=== PATIENT | female | born 1955 | race Caucasian/White ===

== ENCOUNTER 2022-01-01 12:13 | Outpatient (CLI) | payer MEDICAID, SELFPAY ==
[2022-01-01 13:04] LABS: Absolute Lymphocyte Count 1.09 X10^3/uL (0.83-4.51); Absolute Neutrophil Count 4.5 X10^3/uL (2.0-7.7); Basophil# 0.03 X10^3/uL; Basophil% 0.5 % (0-1); Eosinophils% 1.7 % (0-5); Hematocrit 37.3 % (37-47); Hemoglobin 12.9 g/dL (12.0-15.0); Lymphocyte # 1.09 X10^3/ul (0.83-4.51); Mean Corp Hgb Conc 34.6 g/dL (32-36); Mean Corpuscular Volume 89.7 fL (81-99); Mean Platelet Vol. 11.6 fl (6.2-12.0); Monocyte# 0.29 X10^3/uL; Monocyte% 4.8 % (0-10); NRBC Flagged by Analyzer 0 % (0-5); Neutrophil # 4.52 X10^3/uL (2.7-7.7); Neutrophil % 74.7 % (47-70); Platelet Count 238 K/mm3 (150-450); RBC Distribution Width CV 12.6 % (11.6-14.6); RBC Distribution Width SD 41.2 fl (35.1-43.9); Red Blood Count 4.16 M/mm3 (4.2-5.4); White Blood Count 6.1 K/mm3 (4.4-11.0)
[2022-01-01 13:39] LABS: ALB/GLOB Ratio 0.9 RATIO (0.9-2.4); AST(SGOT) 21 U/L (15-37); Alanine Aminotransfer ALT/SGPT 30 U/L (13-56); Alkaline Phosphatase 119 U/L (45-117); Anion Gap 4 (5-15); BUN 23 mg/dL (7-18); BUN/Creat Ratio 23.4 RATIO (10-20); Calcium,Total 10.7 mg/dL (8.5-10.1); Chloride 103 mmol/L (98-107); Creatinine, Serum 0.98 mg/dL (0.55-1.02); EST Glomerular Filtration Rate 61 mL/min (>60); Est Glom Filt Rate - Afr Amer 73 mL/min (>60); Globulin 4.3 g/dL (2.2-4.2); Glucose 157 mg/dL (74-106); Potassium 3.7 mmol/L (3.5-5.1); Protein, Total 8.3 g/dL (6.4-8.2); Sodium Level 137 mmol/L (136-145); Thyroid Stim Hormone (TSH) 0.99 uIU/mL (0.358-3.74)
[2022-01-01 14:06] LABS: Hepatitis C Antibody Non-Reactive (Nonreactive); Vitamin D,25 Hydroxy 22.7 ng/mL
== END 2022-01-01 23:59 | disposition home or self-care (01) ==
PROVIDERS: PCP Family Medicine; Visit Provider Family Medicine Geriatric Medicine
DX: Z00.00 Encounter for general adult medical examination without abnormal findings (principal); R53.83 Other fatigue; E55.9 Vitamin D deficiency, unspecified
CPT/HCPCS: 36415; 80053; 82306; 84443; 85025; 86803

== ENCOUNTER 2022-01-12 14:14 | Outpatient (CLI) | payer MEDICAID, SELFPAY ==
--- NOTE | 2022-01-12 14:17 | BI_ITS ---
MAMMOGRAPHY - BILATERAL SCREENING REASON FOR EXAM: Female, 66 years old. Routine annual screening examination. PERTINENT HISTORY: Non-contributory. Remote left breast biopsy. TECHNIQUE: Digital bilateral breast jeanette (3D mammographic acquisition) in the CC and MLO projections. 2-D mediolateral oblique (MLO) and craniocaudad (CC) views of both breasts were obtained. CAD: Full Field Digital Mammography with Computer Added Detection was performed. COMPARISON: Comparison is made with prior outside examination dated 11/15/2019. FINDINGS: Breast Composition: The breasts are heterogeneously dense, which may obscure small masses. There are no dominant masses or suspicious calcifications. Stable scattered calcifications in the upper outer quadrant of the left breast. No other significant abnormalities are identified. There has been no significant change since the prior study. BI/SCRN MAMM (CAD)W/JEANETTE BILAT IMPRESSION: Stable bilateral screening mammogram. Yearly follow-up mammogram recommended. (A) ASSESSMENT CATEGORY: BIRADS Category 2: Benign. A letter regarding these results will be sent to the patient by the facility within 30 days. Approximately 10% of breast cancers are not detected by mammography. A normal mammogram should not delay biopsy of a clinically suspicious abnormality. [id number] Electronically Signed: Navin Quevedo MD at 10:58 EDT ,
--- NOTE | 2022-01-12 14:20 | BD_ITS ---
STUDY: DUAL ENERGY X-RAY ABSORPTIOMETRY / DXA REASON FOR EXAM: Female, 66 years old. Z780. Patient is postmenopausal. TECHNIQUE: Bone Mineral Density (BMD) measurements of lumbar spine and bilateral hips were obtained. COMPARISON: None. FINDINGS: Lumbar Spine (L1-L4): g/cm2 (1.193) / T-score (1.3) / Z-score (3.0) Findings are suggestive of normal bone density with a low fracture risk. Left Femur Total: g/cm2 (0.946) / T-score (0.0) / Z-score (1.2) Left Femoral Neck: g/cm2 (0.811) / T-score (-0.3) / Z-score (1.1) Right Femur Total: g/cm2 (0.940) / T-score (0.0) / Z-score (1.2) Right Femoral Neck: g/cm2 (0.778) / T-score (-0.6) / Z-score (0.8) BD/Dexa Bone Density Study IMPRESSION: The patient is considered normal as outlined below according to World Cesar Organization (WHO) criteria with a low fracture risk. Reference Information: The T-score is the number of standard deviations above or below the standard which is normal for young adults at their peak bone mineral density. The World Health Organization (WHO) interprets the T-scores as follows: Above -1 Normal bone density Between -1 and -2.5 Osteopenia Equal to / or below -2.5 Osteoporosis As a practical clinical guideline, osteopenia may be graded as follows: Mild -1 through -1.5 Moderate -1.6 through -2.0 Severe -2.1 through -2.4 The Z-score is the number of standard deviations above or below age-matched controls. A Z-score of less than -1.5 would be considered abnormal. References: 1. NIH Osteoporosis and Related Bone Diseases www osteo.org 2. International Society for Clinical Densitometry www iscd.org 3. National Osteoporosis Foundation www nof.org Electronically Signed: Navin Quevedo MD at 8:26 EDT ,
== END 2022-01-12 23:59 | disposition home or self-care (01) ==
LOC: OPBD 14:14
PROVIDERS: PCP Family Medicine Geriatric Medicine; Visit Provider Family Medicine Geriatric Medicine
DX: Z12.31 Encounter for screening mammogram for malignant neoplasm of breast (principal); Z78.0 Asymptomatic menopausal state
CPT/HCPCS: 77063; 77067; 77080

== ENCOUNTER 2022-01-15 12:37 | Outpatient (CLI) | payer MEDICAID, SELFPAY ==
--- NOTE | 2022-01-15 12:39 | CT_ITS ---
STUDY: CT CHEST WITHOUT CONTRAST- LOW DOSE SCREENING PROTOCOL REASON FOR EXAM: Female, 66 years old. Former smoker. Quit smoking less than 20 years ago. 20 pack per year history. No current symptoms of lung cancer or pulmonary infection. Shared decision-making with referring PCP documented in patient''s record. RADIATION DOSAGE (If Supplied By Facility): CTDIvol = ( 3.02 ) mGy, DLP = ( 105.71 ) mGycm TECHNIQUE: Low dose screening CT examination performed from the base of the neck to the upper abdomen. Sagittal and coronal reformatted images performed. Sagittal and coronal MIP images provided. The measurements provided are average, rounded measurements per ACR guidelines. COMPARISON: None. FINDINGS: Mild emphysema. No noncalcified nodule or mass. There is no demonstrated pleural abnormality. Normal heart and pericardium. There are calcifications of the coronary arteries. Normal mediastinum. Normal hilar regions. Normal unenhanced pulmonary arteries. Normal aorta arch and descending thoracic aorta. Normal osseous structures. There is no demonstrated abnormality of the visualized upper abdomen. CT/Low Dose CT Lung Screening IMPRESSION: 1. No significant indeterminate incidental findings requiring additional imaging. 2. Incidental findings include mild emphysema. ASSESSMENT CATEGORY: LungRADS 1 - Negative. Continue annual screening with LDCT in 12 months, per established ACR guidelines. Electronically Signed: Jamey Sanabria MD at 9:12 EDT ,
== END 2022-01-15 23:59 | disposition home or self-care (01) ==
LOC: CT 12:38
PROVIDERS: PCP Family Medicine Geriatric Medicine; Referring Provider Family Medicine Geriatric Medicine; Visit Provider Family Medicine Geriatric Medicine
DX: Z87.891 Personal history of nicotine dependence (principal)
CPT/HCPCS: 71271

== ENCOUNTER → 2022-02-23 | Outpatient (CLI) | payer MEDICAID, SELFPAY | END | disposition home or self-care (01) | LOC: POLAB3 14:29 → LABSPEC 14:30 | PROVIDERS: PCP Family Medicine Geriatric Medicine; Visit Provider Family Medicine Geriatric Medicine | DX: N39.0 Urinary tract infection, site not specified (principal) | CPT/HCPCS: 87086; 87088; 87186 ==

== ENCOUNTER → 2022-03-15 | Outpatient (CLI) | payer MEDICAID, SELFPAY ==
--- NOTE | 2022-03-15 13:01 | RAD_ITS ---
STUDY: X-RAY CHEST REASON FOR EXAM: Female, 66 years old. COUGH TECHNIQUE: 2 views. COMPARISON: None. FINDINGS: Cardiomediastinal silhouette is unremarkable. Costophrenic angles are sharp. Lungs are hyperinflated but clear. The trachea is midline. There is no pneumothorax. The bones are grossly intact. RAD/Chest PA and Lateral IMPRESSION: COPD. No acute cardiopulmonary process. Electronically Signed: Cj Heard MD at 3:05 EDT ,
== END | disposition home or self-care (01) ==
LOC: RAD 13:00
PROVIDERS: PCP Family Medicine Geriatric Medicine; Referring Provider Family Medicine Geriatric Medicine; Visit Provider Family Medicine Geriatric Medicine
DX: R05.9 Cough, unspecified (principal)
CPT/HCPCS: 71046

== ENCOUNTER → 2022-03-16 | Outpatient (CLI) | payer MEDICAID, SELFPAY | END | disposition home or self-care (01) | LOC: PSN 11:38 | PROVIDERS: PCP Family Medicine Geriatric Medicine; Visit Provider Family Medicine Geriatric Medicine | DX: R68.83 Chills (without fever) (principal); Z20.822 Contact with and (suspected) exposure to COVID-19 | CPT/HCPCS: 87635; 87804; 87807; C9803; U0003; U0005 ==

== ENCOUNTER → 2022-04-06 | Outpatient (CLI) | payer MEDICAID, SELFPAY ==
[2022-04-06 17:03] LABS: Absolute Lymphocyte Count 1.31 X10^3/uL (0.83-4.51); Absolute Neutrophil Count 5.5 X10^3/uL (2.0-7.7); Basophil# 0.02 X10^3/uL; Basophil% 0.3 % (0-1); Eosinophil# 0.06 X10^3/uL; Eosinophils% 0.8 % (0-5); Hemoglobin 12.8 g/dL (12.0-15.0); Lymphocyte # 1.31 X10^3/ul (0.83-4.51); Lymphocyte % 18.1 % (19-41); Mean Corp Hgb Conc 33.7 g/dL (32-36); Mean Corpuscular Hgb 30.6 pg (27.0-32.0); Mean Corpuscular Volume 90.9 fL (81-99); Mean Platelet Vol. 12.3 fl (6.2-12.0); Monocyte# 0.35 X10^3/uL; Monocyte% 4.8 % (0-10); NRBC Flagged by Analyzer 0.3 % (0-5); Neutrophil # 5.46 X10^3/uL (2.7-7.7); Neutrophil % 75.7 % (47-70); Platelet Count 186 K/mm3 (150-450); RBC Distribution Width CV 13.3 % (11.6-14.6); RBC Distribution Width SD 43.8 fl (35.1-43.9); Red Blood Count 4.18 M/mm3 (4.2-5.4); White Blood Count 7.2 K/mm3 (4.4-11.0)
[2022-04-06 17:28] LABS: ALB/GLOB Ratio 1.2 RATIO (0.9-2.4); AST(SGOT) 22 U/L (15-37); Alanine Aminotransfer ALT/SGPT 40 U/L (13-56); Alkaline Phosphatase 92 U/L (45-117); Anion Gap 8 (5-15); BUN 19 mg/dL (7-18); BUN/Creat Ratio 18.4 RATIO (10-20); Calcium,Total 11.1 mg/dL (8.5-10.1); Chloride 104 mmol/L (98-107); Creatinine, Serum 1.03 mg/dL (0.55-1.02); EST Glomerular Filtration Rate 57 mL/min (>60); Est Glom Filt Rate - Afr Amer 69 mL/min (>60); Globulin 3.4 g/dL (2.2-4.2); Glucose 99 mg/dL (74-106); Potassium 3.4 mmol/L (3.5-5.1); Protein, Total 7.4 g/dL (6.4-8.2); Sodium Level 140 mmol/L (136-145); Thyroid Stim Hormone (TSH) 0.95 uIU/mL (0.358-3.74)
== END | disposition home or self-care (01) ==
LOC: POLAB3 11:59
PROVIDERS: PCP Family Medicine Geriatric Medicine; Visit Provider Family Medicine Geriatric Medicine
DX: I10 Essential (primary) hypertension (principal); E11.65 Type 2 diabetes mellitus with hyperglycemia
CPT/HCPCS: 36415; 80053; 84443; 85025

== ENCOUNTER → 2022-04-13 | Outpatient (CLI) | payer MEDICAID, SELFPAY ==
[2022-04-13 16:29] LABS: Anion Gap 8 (5-15); BUN 16 mg/dL (7-18); BUN/Creat Ratio 15.8 RATIO (10-20); Calcium,Total 10.7 mg/dL (8.5-10.1); Chloride 104 mmol/L (98-107); Creatinine, Serum 1.01 mg/dL (0.55-1.02); EST Glomerular Filtration Rate 59 mL/min (>60); Est Glom Filt Rate - Afr Amer 71 mL/min (>60); Glucose 176 mg/dL (74-106); Potassium 3.5 mmol/L (3.5-5.1); Sodium Level 138 mmol/L (136-145)
== END | disposition home or self-care (01) ==
LOC: POLAB3 14:01
PROVIDERS: PCP Family Medicine Geriatric Medicine; Visit Provider Family Medicine Geriatric Medicine
DX: E87.6 Hypokalemia (principal)
CPT/HCPCS: 36415; 80048

== ENCOUNTER → 2022-07-05 | Outpatient (CLI) | payer MEDICAID, SELFPAY ==
[2022-07-05 16:27] LABS: Absolute Neutrophil Count 4.4 X10^3/uL (2.0-7.7); Basophil# 0.02 X10^3/uL; Basophil% 0.3 % (0-1); Eosinophil# 0.04 X10^3/uL; Eosinophils% 0.7 % (0-5); Hematocrit 38.3 % (37-47); Lymphocyte % 18.5 % (19-41); Mean Corp Hgb Conc 33.9 g/dL (32-36); Mean Corpuscular Hgb 30.9 pg (27.0-32.0); Mean Platelet Vol. 12.1 fl (6.2-12.0); Monocyte# 0.35 X10^3/uL; Monocyte% 5.9 % (0-10); NRBC Flagged by Analyzer 0 % (0-5); Neutrophil # 4.43 X10^3/uL (2.7-7.7); Neutrophil % 74.4 % (47-70); Platelet Count 224 K/mm3 (150-450); RBC Distribution Width CV 13.2 % (11.6-14.6); RBC Distribution Width SD 43.6 fl (35.1-43.9); Red Blood Count 4.21 M/mm3 (4.2-5.4)
[2022-07-05 17:23] LABS: AST(SGOT) 19 U/L (15-37); Alanine Aminotransfer ALT/SGPT 30 U/L (13-56); Albumin, Serum 3.8 g/dL (3.2-5.0); Alkaline Phosphatase 103 U/L (45-117); Anion Gap 10 (5-15); BUN 18 mg/dL (7-18); BUN/Creat Ratio 19.2 RATIO (10-20); Calcium,Total 10.7 mg/dL (8.5-10.1); Chloride 103 mmol/L (98-107); Creatinine, Serum 0.94 mg/dL (0.55-1.02); EST Glomerular Filtration Rate 64 mL/min (>60); Est Glom Filt Rate - Afr Amer 77 mL/min (>60); Globulin 3.8 g/dL (2.2-4.2); Glucose 93 mg/dL (74-106); Potassium 3.5 mmol/L (3.5-5.1); Protein, Total 7.6 g/dL (6.4-8.2); Sodium Level 142 mmol/L (136-145); Thyroid Stim Hormone (TSH) 1.28 uIU/mL (0.358-3.74)
== END | disposition home or self-care (01) ==
LOC: POLAB3 12:53
PROVIDERS: PCP Family Medicine Geriatric Medicine; Visit Provider Family Medicine Geriatric Medicine
DX: I10 Essential (primary) hypertension (principal); E11.65 Type 2 diabetes mellitus with hyperglycemia
CPT/HCPCS: 36415; 80053; 84443; 85025

== ENCOUNTER → 2022-10-04 | Outpatient (CLI) | payer MEDICARE, MEDICAID, SELFPAY ==
[2022-10-04 17:22] LABS: Absolute Lymphocyte Count 1.32 X10^3/uL (0.83-4.51); Absolute Neutrophil Count 3.6 X10^3/uL (2.0-7.7); Basophil# 0.02 X10^3/uL; Basophil% 0.4 % (0-1); Eosinophil# 0.04 X10^3/uL; Eosinophils% 0.7 % (0-5); Hemoglobin 12.8 g/dL (12.0-15.0); Lymphocyte # 1.32 X10^3/ul (0.83-4.51); Lymphocyte % 24.2 % (19-41); Mean Corp Hgb Conc 34.6 g/dL (32-36); Mean Corpuscular Hgb 30.6 pg (27.0-32.0); Mean Corpuscular Volume 88.5 fL (81-99); Mean Platelet Vol. 11.8 fl (6.2-12.0); Monocyte# 0.43 X10^3/uL; Monocyte% 7.9 % (0-10); NRBC Flagged by Analyzer 0 % (0-5); Neutrophil # 3.63 X10^3/uL (2.7-7.7); Neutrophil % 66.6 % (47-70); Platelet Count 217 K/mm3 (150-450); RBC Distribution Width CV 12.4 % (11.6-14.6); RBC Distribution Width SD 39.8 fl (35.1-43.9); Red Blood Count 4.18 M/mm3 (4.2-5.4); White Blood Count 5.5 K/mm3 (4.4-11.0)
[2022-10-04 17:32] LABS: Vitamin D,25 Hydroxy 36.2 ng/mL
[2022-10-04 17:39] LABS: ALB/GLOB Ratio 1.1 RATIO (0.9-2.4); AST(SGOT) 15 U/L (15-37); Alanine Aminotransfer ALT/SGPT 23 U/L (13-56); Albumin, Serum 3.9 g/dL (3.2-5.0); Alkaline Phosphatase 110 U/L (45-117); Anion Gap 9 (5-15); BUN 20 mg/dL (7-18); BUN/Creat Ratio 19.2 RATIO (10-20); Calcium,Total 11.1 mg/dL (8.5-10.1); Chloride 103 mmol/L (98-107); Cholesterol 125 mg/dL (200); Creatinine, Serum 1.04 mg/dL (0.55-1.02); EST Glomerular Filtration Rate 57 mL/min (>60); Est Glom Filt Rate - Afr Amer 68 mL/min (>60); Globulin 3.6 g/dL (2.2-4.2); Glucose 119 mg/dL (74-106); High Density Lipoprotein 43 mg/dL; Potassium 3.6 mmol/L (3.5-5.1); Protein, Total 7.5 g/dL (6.4-8.2); Sodium Level 140 mmol/L (136-145); Thyroid Stim Hormone (TSH) 0.76 uIU/mL (0.358-3.74); Triglycerides 98 mg/dL; Very Low Density Lipoprotein 20 mg/dL (5-40)
== END | disposition home or self-care (01) ==
PROVIDERS: PCP Family Medicine Geriatric Medicine; Visit Provider Family Medicine Geriatric Medicine
DX: E55.9 Vitamin D deficiency, unspecified (principal); E11.65 Type 2 diabetes mellitus with hyperglycemia; I10 Essential (primary) hypertension
CPT/HCPCS: 36415; 80053; 80061; 82306; 84443; 85025

== ENCOUNTER → 2023-01-03 | Outpatient (CLI) | payer MEDICARE, MEDICAID, SELFPAY ==
[2023-01-03 17:34] LABS: Absolute Lymphocyte Count 1.17 X10^3/uL (0.83-4.51); Absolute Neutrophil Count 4.7 X10^3/uL (2.0-7.7); Basophil# 0.02 X10^3/uL; Basophil% 0.3 % (0-1); Eosinophil# 0.04 X10^3/uL; Eosinophils% 0.6 % (0-5); Hematocrit 41.9 % (37-47); Hemoglobin 13.6 g/dL (12.0-15.0); Lymphocyte # 1.17 X10^3/ul (0.83-4.51); Lymphocyte % 18.7 % (19-41); Mean Corp Hgb Conc 32.5 g/dL (32-36); Mean Corpuscular Volume 92.3 fL (81-99); Mean Platelet Vol. 11.7 fl (6.2-12.0); Monocyte# 0.35 X10^3/uL; Monocyte% 5.6 % (0-10); NRBC Flagged by Analyzer 0 % (0-5); Neutrophil # 4.65 X10^3/uL (2.7-7.7); Neutrophil % 74.5 % (47-70); Platelet Count 204 K/mm3 (150-450); RBC Distribution Width CV 12.5 % (11.6-14.6); RBC Distribution Width SD 42.5 fl (35.1-43.9); Red Blood Count 4.54 M/mm3 (4.2-5.4); White Blood Count 6.3 K/mm3 (4.4-11.0)
[2023-01-03 17:48] LABS: Vitamin D,25 Hydroxy 31.4 ng/mL
[2023-01-03 18:00] LABS: ALB/GLOB Ratio 1.1 RATIO (0.9-2.4); AST(SGOT) 20 U/L (15-37); Alanine Aminotransfer ALT/SGPT 34 U/L (13-56); Albumin, Serum 4.1 g/dL (3.2-5.0); Alkaline Phosphatase 92 U/L (45-117); Anion Gap 7 (5-15); BUN 19 mg/dL (7-18); BUN/Creat Ratio 21.8 RATIO (10-20); Chloride 104 mmol/L (98-107); Cholesterol 143 mg/dL (200); Creatinine, Serum 0.87 mg/dL (0.55-1.02); EST Glomerular Filtration Rate 69 mL/min (>60); Est Glom Filt Rate - Afr Amer 84 mL/min (>60); Globulin 3.7 g/dL (2.2-4.2); Glucose 96 mg/dL (74-106); High Density Lipoprotein 48 mg/dL; Potassium 3.6 mmol/L (3.5-5.1); Protein, Total 7.8 g/dL (6.4-8.2); Sodium Level 141 mmol/L (136-145); Thyroid Stim Hormone (TSH) 1.14 uIU/mL (0.358-3.74); Triglycerides 155 mg/dL; Very Low Density Lipoprotein 31 mg/dL (5-40)
== END | disposition home or self-care (01) ==
LOC: POLAB3 13:18
PROVIDERS: PCP Family Medicine Geriatric Medicine; Visit Provider Family Medicine Geriatric Medicine
DX: I10 Essential (primary) hypertension (principal); E11.65 Type 2 diabetes mellitus with hyperglycemia; E55.9 Vitamin D deficiency, unspecified
CPT/HCPCS: 36415; 80053; 80061; 82306; 84443; 85025

== ENCOUNTER → 2023-01-21 | Outpatient (CLI) | payer MEDICARE, MEDICAID, SELFPAY ==
--- NOTE | 2023-01-21 14:07 | SP.MBSS_ITS ---
Modified Barium Swallow - Patient Information Study Date: 01/21/23 Study Time: 12:55 Direct Billable Minutes: 82 Total Minutes procedure & reportin Diagnosis: Dysphagia, unspecified (R13.10) Referring Physician: Daniel Barahona Chi Reason for Referral: Objectively assess swallow function, assess risk for aspiration, and determine recommendations for least restrictive diet textures and compensatory strategies to improve safety of swallow. Medical History: The patient is a 67-year-old female with PMH including GERD, which she has managed for years with medication. Patient reports increased difficulty swallowing in the past year, which has worsened in the past 3 months. Her swallowing difficulty is characterized by coughing on saliva, food, and drink, which occurs almost daily. She denied regurgitation of food and drink; however, she did report an episode ~2 months prior of concern for choking on salad. She used a liquid wash to attempt clearing the salad, but the drink came out her nose. She stated she did not need the Heimlich and could breathe/speak during the episode; however, she felt that the food was caught in the left side of her throat. She reports concerns for throat soreness/pain on L side of her throat fairly frequently. Current Diet Ordered: Regular textures / Thin liquids Dentition: Partials - Upper dentition, Missing Teeth - Lower molars Mental Status: WNL Respiratory Status: Oxygenating on Room Air - Penetration-Aspiration Scale Penetration-Aspiration Scale: OBJECTIVE ASSESSMENT OF SWALLOW FUNCTION (QUANTITATIVE ? PER TRIAL): PENETRATION / ASPIRATION SCALE (HADDAD): 1 = does not enter airway 2 = enters airway/above vocal folds/ejected 3 = enters airway/above vocal folds/not ejected 4 = enters airway/contacts vocal folds/ejected 5 = enters airway/contacts vocal folds/not ejected 6 = enters airway/below vocal folds/ejected 7 = enters airway/below vocal folds/not ejected despite effort 8 = enters airway/below vocal folds/no effort VIDEOFLOROSCOPIC SCALE SCORE (HADDAD): Grade I = aspiration of material that has penetrated into the laryngeal vestibule, intact cough reflex Grade II = aspiration < 10 % of the bolus, intact cough reflex Grade III = aspiration of < 10 % of the bolus, reduced cough reflex or aspiration of > 10 % of the bolus, intact cough reflex Grade IV = aspiration of > 10 % of the bolus, reduced cough reflex - Penetration-Aspiration Scale Score Thin Liquid via teaspoon Result: 1= does not enter airway Thin Liquid via teaspoon Trial 2 Result: 1= does not enter airway Thin Liquid via sequential sips from cup Result: 1= does not enter airway [place] Thick Liquid via small single sip from cup Result: 1= does not enter airway Pudding via teaspoon with esophageal screen Result: 1= does not enter airway Thin Liquid via sequential straw sips with esophageal screen Result: 1= does not enter airway 1/2 Cookie Result: 1= does not enter airway - Oral Phase Labial Seal: No Labial Escape Tongue Control During Bolus Hold: Posterior escape of greater than half of bolus Bolus Preparation/Mastication: Timely and efficient chewing and mashing Bolus Transport/Lingual Motion: Delayed initiation of tongue motion Oral Residue: Residue collection on oral structures - piecemeal deglutition of cookie - Pharyngeal Phase Initiation of Pharyngeal Swallow: Bolus head in pyriforms Soft Palate Elevation: Trace column of contrast/air between soft palate and pharyngeal wall Laryngeal Elevation: Comp. Superior move thyroid cart w/comp. apprx arytenoid cart-epig pet - trace contrast in UES Anterior Hyoid Excursion: Complete anterior movement Epiglottic Movement: Complete inversion Laryngeal Vestibule Closure at Height of Swallow: Complete; no air/contrast in laryngeal vestibule Pharyngeal Stripping Wave: Present - complete Pharyngoesophageal Segment Opening: Parital distension and partial duration; parital obstruction of flow Tongue Base Retraction: Trace column of contrast between tongue base & post. pharyngeal wall Pharyngeal Residue: Trace residue within or on pharyngeal structures - Esophageal Phase Esophageal Clearance: Esophageal retention w/ retrograde flow below pharyngoesophageal seg. - Diagnosis/Impression Diagnosis: Oropharyngeal swallow function grossly WNL, Esophageal dysphagia (R13.14) Impression: The oral and pharyngeal phases were overall WNL. The patient presented piecemeal deglutition of cookie; however, she adequately cleared residues from oral cavity with independent initiation of multiple swallows. Trace pharyngeal residues despite patient reporting sensation of retention on L side of her throat. Good airway closure during the swallow with no laryngeal penetration or aspiration observed. The patient does present with cervical osteophytes at the level of C-2 to C-4, which may be contributing to patient's irritation/sensation of retention in orophayrnx. SEE image at the end of the study in PACS. They did not appear to greatly impact bolus clearance at this time. As mentioned above, only trace pharyngeal residues were observed. The esophageal phase is primarily marked by... -Trace residues in the cricopharyngeus and upper esophagus. -Residue collection of 1/2 pudding bolus in the mid esophagus with retrograde flow remaining below the upper esophageal sphincter. -Pudding residue somewhat cleared with liquid wash; however, some retention of liquids remained in lower esophagus with retrograde flow remaining well below the upper esophageal sphincter. - Recommendations Diet: Regular Textures, Thin Liquids Comment: Consider 4-5 smaller meals per day vs. 3 larger meals. Stop meal and resume at a later time if experiencing reflux symptoms. Compensatory Strategies: Small Bites, Small Sips, Slow Rate, Alternate bite s/solids and sips/liquids, Sitting upright, Remain sitting upright for 30 minutes after PO intake Recommend Repeat Modified Barium Swallow: No Need for Skilled Speech Therapy Services: No Recommended Referrals: GI Consult - Recommend GI consult for slowed esophageal emptying of both liquid and pudding trials. Patient is safe for barium esophagram if recommended by home restoration service supervisor. Education Completed: 1. Described result of evaluation. - Status Active ST Patient: Active - Contact Information [facility] Speech Therapy:: Gely Aponte M.A. [facility]-M[facility] INTERN Speech-Language Pathologist [facility] [address] [place] [address] [email or web address] [phone] 01/21/23 14:09
== END | disposition home or self-care (01) ==
PROVIDERS: PCP Family Medicine Geriatric Medicine; Visit Provider Family Medicine Geriatric Medicine
DX: R13.10 Dysphagia, unspecified (principal)
CPT/HCPCS: 74230; 92611

== ENCOUNTER → 2023-05-02 | Outpatient (CLI) | payer MEDICARE, MEDICAID, SELFPAY ==
--- NOTE | 2023-05-02 14:18 | BI_ITS ---
MAMMOGRAPHY - BILATERAL SCREENING REASON FOR EXAM: Female, 67 years old. Routine annual screening examination. PERTINENT HISTORY: Non-contributory. Remote left breast biopsy. TECHNIQUE: Digital bilateral breast jeanette (3D mammographic acquisition) in the CC and MLO projections. 2-D mediolateral oblique (MLO) and craniocaudad (CC) views of both breasts were obtained. CAD: Full Field Digital Mammography with Computer Added Detection was performed. COMPARISON: Comparison is made with prior examination dated January 12, 2022. FINDINGS: Breast Composition: The breasts are heterogeneously dense, which may obscure small masses. There are no dominant masses or suspicious calcifications. Stable scattered bilateral calcifications. No other significant abnormalities are identified. There has been no significant change since the prior study. BI/SCRN MAMM (CAD)W/JEANETTE BILAT IMPRESSION: Stable bilateral screening mammogram. Yearly follow-up mammogram recommended. (A) ASSESSMENT CATEGORY: BIRADS Category 2: Benign. A letter regarding these results will be sent to the patient by the facility within 30 days. Approximately 10% of breast cancers are not detected by mammography. A normal mammogram should not delay biopsy of a clinically suspicious abnormality. [id number] Electronically Signed: Navin Quevedo MD at 8:12 EDT ,
== END | disposition home or self-care (01) ==
LOC: OPBI 14:18
PROVIDERS: PCP Family Medicine Geriatric Medicine; Referring Provider Family Medicine Geriatric Medicine; Visit Provider Family Medicine Geriatric Medicine
DX: Z12.31 Encounter for screening mammogram for malignant neoplasm of breast (principal)
CPT/HCPCS: 77063; 77067

== ENCOUNTER → 2023-07-05 | Outpatient (CLI) | payer MEDICARE, MEDICAID, SELFPAY ==
[2023-07-05 12:16] LABS: Absolute Lymphocyte Count 1.16 X10^3/uL (0.83-4.51); Absolute Neutrophil Count 3.7 X10^3/uL (2.0-7.7); Basophil# 0.03 X10^3/uL; Basophil% 0.6 % (0-1); Eosinophil# 0.04 X10^3/uL; Eosinophils% 0.8 % (0-5); Hematocrit 40.9 % (37-47); Hemoglobin 13.5 g/dL (12.0-15.0); Lymphocyte # 1.16 X10^3/ul (0.83-4.51); Lymphocyte % 22.2 % (19-41); Mean Corpuscular Hgb 30.4 pg (27.0-32.0); Mean Corpuscular Volume 92.1 fL (81-99); Mean Platelet Vol. 11.5 fl (6.2-12.0); Monocyte# 0.26 X10^3/uL; NRBC Flagged by Analyzer 0 % (0-5); Neutrophil # 3.72 X10^3/uL (2.7-7.7); Platelet Count 198 K/mm3 (150-450); RBC Distribution Width CV 12.6 % (11.6-14.6); RBC Distribution Width SD 42.8 fl (35.1-43.9); Red Blood Count 4.44 M/mm3 (4.2-5.4); White Blood Count 5.2 K/mm3 (4.4-11.0)
[2023-07-05 12:31] LABS: Vitamin D,25 Hydroxy 39.8 ng/mL
[2023-07-05 12:43] LABS: AST(SGOT) 21 U/L (15-37); Alanine Aminotransfer ALT/SGPT 44 U/L (13-56); Albumin, Serum 3.9 g/dL (3.2-5.0); Alkaline Phosphatase 99 U/L (45-117); Anion Gap 5 (5-15); BUN 20 mg/dL (7-18); BUN/Creat Ratio 21.3 RATIO (10-20); Calcium,Total 10.7 mg/dL (8.5-10.1); Chloride 105 mmol/L (98-107); Cholesterol 130 mg/dL (200); Creatinine, Serum 0.94 mg/dL (0.55-1.02); EST Glomerular Filtration Rate 63 mL/min (>60); Est Glom Filt Rate - Afr Amer 77 mL/min (>60); Globulin 3.8 g/dL (2.2-4.2); Glucose 125 mg/dL (74-106); High Density Lipoprotein 43 mg/dL; Potassium 3.8 mmol/L (3.5-5.1); Protein, Total 7.7 g/dL (6.4-8.2); Sodium Level 139 mmol/L (136-145); Thyroid Stim Hormone (TSH) 1.04 uIU/mL (0.358-3.74); Triglycerides 107 mg/dL; Very Low Density Lipoprotein 21 mg/dL (5-40)
== END | disposition home or self-care (01) ==
LOC: POLAB3 11:18
PROVIDERS: PCP Family Medicine Geriatric Medicine; Visit Provider Family Medicine Geriatric Medicine
DX: E11.65 Type 2 diabetes mellitus with hyperglycemia (principal); E55.9 Vitamin D deficiency, unspecified; I10 Essential (primary) hypertension
CPT/HCPCS: 36415; 80053; 80061; 82306; 83036; 84443; 85025

== ENCOUNTER → 2023-08-15 | Outpatient (CLI) | payer MEDICARE, MEDICAID, SELFPAY ==
--- NOTE | 2023-08-15 12:28 | US_ITS ---
EXAM: US Abdomen Limited (quadrant) HISTORY: BENIGN LIPOMATOUS NEOPLASM, UNSPECIFIED Technique: Sonographic evaluation of a palpable abdominal lump COMPARISON: None FINDINGS: Sonographic evaluation of the area of concern shows a subcutaneous well-defined likely lipoma measuring 6.9 x 7.6 x 2.0 cm. No suspicious vascularity or fluid noted. No evidence of hernia US/Abdomen Limited IMPRESSION: Subcutaneous lipoma corresponding to the palpable abnormality at the area of concern Electronically Signed: Jay Martinez MD at 15:16 EDT ,
== END | disposition home or self-care (01) ==
LOC: US 12:26
PROVIDERS: PCP Family Medicine Geriatric Medicine; Referring Provider Family Medicine Geriatric Medicine; Visit Provider Family Medicine Geriatric Medicine
DX: D17.9 Benign lipomatous neoplasm, unspecified (principal)
CPT/HCPCS: 76705

== ENCOUNTER → 2024-01-09 | Outpatient (CLI) | payer MEDICARE, MEDICAID, SELFPAY ==
[2024-01-09 12:08] LABS: Absolute Lymphocyte Count 1.13 X10^3/uL (0.83-4.51); Absolute Neutrophil Count 4.4 X10^3/uL (2.0-7.7); Basophil# 0.03 X10^3/uL; Basophil% 0.5 % (0-1); Eosinophil# 0.03 X10^3/uL; Eosinophils% 0.5 % (0-5); Hemoglobin 12.5 g/dL (12.0-15.0); Lymphocyte # 1.13 X10^3/ul (0.83-4.51); Lymphocyte % 19.4 % (19-41); Mean Corp Hgb Conc 33.8 g/dL (32-36); Mean Corpuscular Hgb 30.8 pg (27.0-32.0); Mean Corpuscular Volume 91.1 fL (81-99); Mean Platelet Vol. 12.2 fl (6.2-12.0); Monocyte# 0.21 X10^3/uL; Monocyte% 3.6 % (0-10); NRBC Flagged by Analyzer 0 % (0-5); Neutrophil # 4.42 X10^3/uL (2.7-7.7); Neutrophil % 75.8 % (47-70); Platelet Count 169 K/mm3 (150-450); RBC Distribution Width CV 12.6 % (11.6-14.6); RBC Distribution Width SD 41.9 fl (35.1-43.9); Red Blood Count 4.06 M/mm3 (4.2-5.4); White Blood Count 5.8 K/mm3 (4.4-11.0)
[2024-01-09 12:11] LABS: Vitamin D,25 Hydroxy 33.1 ng/mL
[2024-01-09 12:22] LABS: ALB/GLOB Ratio 1.1 RATIO (0.9-2.4); AST(SGOT) 28 U/L (15-37); Alanine Aminotransfer ALT/SGPT 41 U/L (13-56); Albumin, Serum 3.7 g/dL (3.2-5.0); Alkaline Phosphatase 100 U/L (45-117); Anion Gap 4 (5-15); BUN 17 mg/dL (7-18); BUN/Creat Ratio 16.5 RATIO (10-20); Calcium,Total 10.2 mg/dL (8.5-10.1); Chloride 105 mmol/L (98-107); Cholesterol 114 mg/dL (200); Creatinine, Serum 1.03 mg/dL (0.55-1.02); EST Glomerular Filtration Rate 57 mL/min (>60); Est Glom Filt Rate - Afr Amer 69 mL/min (>60); Globulin 3.4 g/dL (2.2-4.2); Glucose 172 mg/dL (74-106); High Density Lipoprotein 50 mg/dL; Potassium 3.6 mmol/L (3.5-5.1); Protein, Total 7.1 g/dL (6.4-8.2); Sodium Level 140 mmol/L (136-145); Thyroid Stim Hormone (TSH) 0.74 uIU/mL (0.358-3.74); Triglycerides 61 mg/dL; Very Low Density Lipoprotein 12 mg/dL (5-40)
[2024-01-09 12:28] LABS: Microalbumin,Random Urine 29.3 mg/L (NO RANGE EST.)
[2024-01-09 13:49] LABS: Hemoglobin A1c 6.1 % (3.8-5.6)
[2024-01-09 15:12] LABS: PTHIN 70.8 pg/mL (18.4-80.1)
== END | disposition home or self-care (01) ==
PROVIDERS: PCP Family Medicine Geriatric Medicine; Visit Provider Family Medicine Geriatric Medicine
DX: E11.65 Type 2 diabetes mellitus with hyperglycemia (principal); I10 Essential (primary) hypertension; E55.9 Vitamin D deficiency, unspecified; E78.5 Hyperlipidemia, unspecified
CPT/HCPCS: 36415; 80053; 80061; 82043; 82306; 83036; 83970; 84443; 85025

== ENCOUNTER → 2024-02-17 | Outpatient (CLI) | payer MEDICARE, MEDICAID, SELFPAY ==
[2024-02-17 11:37] LABS: Absolute Lymphocyte Count 0.36 X10^3/uL (0.83-4.51); Absolute Neutrophil Count 10.1 X10^3/uL (2.0-7.7); Basophil# 0.02 X10^3/uL; Basophil% 0.2 % (0-1); Hematocrit 39.4 % (37-47); Hemoglobin 13.4 g/dL (12.0-15.0); Lymphocyte # 0.36 X10^3/ul (0.83-4.51); Lymphocyte % 3.3 % (19-41); Mean Corpuscular Volume 88.1 fL (81-99); Mean Platelet Vol. 11.1 fl (6.2-12.0); Monocyte# 0.41 X10^3/uL; Monocyte% 3.7 % (0-10); NRBC Flagged by Analyzer 0 % (0-5); Neutrophil # 10.11 X10^3/uL (2.7-7.7); Neutrophil % 92.4 % (47-70); POSITIVE DIFFERENTIAL YES; Platelet Count 170 K/mm3 (150-450); RBC Distribution Width CV 12.1 % (11.6-14.6); RBC Distribution Width SD 39.6 fl (35.1-43.9); Red Blood Count 4.47 M/mm3 (4.2-5.4); White Blood Count 10.9 K/mm3 (4.4-11.0)
[2024-02-17 12:39] LABS: Anion Gap 7 (5-15); BUN 17 mg/dL (7-18); BUN/Creat Ratio 19.8 RATIO (10-20); Calcium,Total 10.8 mg/dL (8.5-10.1); Chloride 100 mmol/L (98-107); Creatinine, Serum 0.86 mg/dL (0.55-1.02); EST Glomerular Filtration Rate 70 mL/min (>60); Est Glom Filt Rate - Afr Amer 85 mL/min (>60); Glucose 131 mg/dL (74-106); Potassium 3.2 mmol/L (3.5-5.1); Sodium Level 135 mmol/L (136-145)
== END | disposition home or self-care (01) ==
LOC: POLAB3 11:13
PROVIDERS: PCP Family Medicine Geriatric Medicine; Visit Provider Family Medicine Geriatric Medicine
DX: I10 Essential (primary) hypertension (principal)
CPT/HCPCS: 36415; 80048; 85025

== ENCOUNTER → 2024-02-21 | Outpatient (CLI) | payer MEDICARE, MEDICAID, SELFPAY | END | disposition home or self-care (01) | LOC: PSN 09:26 | PROVIDERS: PCP Family Medicine Geriatric Medicine; Referring Provider Family Medicine Geriatric Medicine; Visit Provider Family Medicine Geriatric Medicine | DX: R68.83 Chills (without fever) (principal) | CPT/HCPCS: 87631 ==

== ENCOUNTER → 2024-06-21 | Outpatient (CLI) | payer MEDICARE, MEDICAID, SELFPAY | END | disposition home or self-care (01) | LOC: POLAB3 11:39 | PROVIDERS: PCP Family Medicine Geriatric Medicine; Visit Provider Family Medicine Geriatric Medicine | DX: R68.83 Chills (without fever) (principal) | CPT/HCPCS: 87631 ==

== ENCOUNTER → 2024-07-12 | Outpatient (CLI) | payer MEDICARE, MEDICAID, SELFPAY ==
[2024-07-12 11:05] LABS: Absolute Lymphocyte Count 1.19 X10^3/uL (0.83-4.51); Absolute Neutrophil Count 3.9 X10^3/uL (2.0-7.7); Basophil# 0.01 X10^3/uL; Basophil% 0.2 % (0-1); Eosinophil# 0.05 X10^3/uL; Eosinophils% 0.9 % (0-5); Hematocrit 39.2 % (37-47); Hemoglobin 13.1 g/dL (12.0-15.0); Lymphocyte # 1.19 X10^3/ul (0.83-4.51); Mean Corp Hgb Conc 33.4 g/dL (32-36); Mean Corpuscular Hgb 30.1 pg (27.0-32.0); Mean Corpuscular Volume 90.1 fL (81-99); Mean Platelet Vol. 11.5 fl (6.2-12.0); Monocyte# 0.29 X10^3/uL; Monocyte% 5.4 % (0-10); NRBC Flagged by Analyzer 0 % (0-5); Neutrophil # 3.86 X10^3/uL (2.7-7.7); Neutrophil % 71.1 % (47-70); Platelet Count 162 K/mm3 (150-450); RBC Distribution Width CV 12.7 % (11.6-14.6); RBC Distribution Width SD 41.5 fl (35.1-43.9); Red Blood Count 4.35 M/mm3 (4.2-5.4); White Blood Count 5.4 K/mm3 (4.4-11.0)
[2024-07-12 11:29] LABS: Hemoglobin A1c 5.6 % (3.8-5.6)
[2024-07-12 11:37] LABS: Vitamin D,25 Hydroxy 36.6 ng/mL
[2024-07-12 11:48] LABS: ALB/GLOB Ratio 1.1 RATIO (0.9-2.4); AST(SGOT) 36 U/L (15-37); Alanine Aminotransfer ALT/SGPT 76 U/L (13-56); Albumin, Serum 3.7 g/dL (3.2-5.0); Alkaline Phosphatase 112 U/L (45-117); Anion Gap 3 (5-15); BUN 17 mg/dL (7-18); BUN/Creat Ratio 21.1 RATIO (10-20); Calcium,Total 10.6 mg/dL (8.5-10.1); Chloride 106 mmol/L (98-107); Cholesterol 133 mg/dL (200); Creatinine, Serum 0.81 mg/dL (0.55-1.02); EST Glomerular Filtration Rate 75 mL/min (>60); Est Glom Filt Rate - Afr Amer 91 mL/min (>60); Globulin 3.4 g/dL (2.2-4.2); Glucose 103 mg/dL (74-106); High Density Lipoprotein 53 mg/dL; Protein, Total 7.1 g/dL (6.4-8.2); Sodium Level 139 mmol/L (136-145); Thyroid Stim Hormone (TSH) 0.995 uIU/mL (0.358-3.740); Triglycerides 78 mg/dL; Very Low Density Lipoprotein 16 mg/dL (5-40)
== END | disposition home or self-care (01) ==
PROVIDERS: PCP Family Medicine Geriatric Medicine; Visit Provider Family Medicine Geriatric Medicine
DX: E11.65 Type 2 diabetes mellitus with hyperglycemia (principal); I10 Essential (primary) hypertension; E55.9 Vitamin D deficiency, unspecified; E78.5 Hyperlipidemia, unspecified
CPT/HCPCS: 36415; 80053; 80061; 82306; 83036; 84443; 85025

== ENCOUNTER → 2024-07-20 | Outpatient (CLI) | payer MEDICARE, MEDICAID, SELFPAY ==
[2024-07-20 11:17] LABS: (24 HR) Urine Calcium 124.8 mg/24 HR (42.0-353.0); 24HR UR TOTAL VOLUME 1200 ml; Calcium Urine pH Range 2; Urine Calcium (Random) 10.4 mg/dL (Not Estab.)
== END | disposition home or self-care (01) ==
LOC: LABSPEC 09:51
PROVIDERS: PCP Family Medicine Geriatric Medicine; Referring Provider Family Medicine Geriatric Medicine; Visit Provider Family Medicine Geriatric Medicine
DX: E83.52 Hypercalcemia (principal)
CPT/HCPCS: 81050; 82340

== ENCOUNTER 2024-08-15 05:42 | Day surgery (SDC) | payer MEDICARE, MEDICAID, SELFPAY ==
--- NOTE | 2024-08-10 11:53 | EKG12_ITS ---
Test Reason : PREOP Blood Pressure : / mmHG Vent. Rate : 060 BPM Atrial Rate : 060 BPM P-R Int : 182 ms QRS Dur : 080 ms QT Int : 388 ms P-R-T Axes : -10 042 037 degrees QTc Int : 388 ms Normal sinus rhythm Normal ECG Confirmed by Fletcher Veliz ([id number]), visual effects editor MARGO YI ([id number]) on 08/10/2024 1:32:52 PM Referred By: Vishal Sherwood Confirmed By:Fletcher Veliz
[2024-08-10 13:12] LABS: Absolute Lymphocyte Count 1.26 X10^3/uL (0.83-4.51); Absolute Neutrophil Count 3.5 X10^3/uL (2.0-7.7); Basophil# 0.01 X10^3/uL; Basophil% 0.2 % (0-1); Eosinophil# 0.03 X10^3/uL; Eosinophils% 0.6 % (0-5); Hematocrit 38.4 % (37-47); Hemoglobin 12.6 g/dL (12.0-15.0); Lymphocyte # 1.26 X10^3/ul (0.83-4.51); Mean Corp Hgb Conc 32.8 g/dL (32-36); Mean Corpuscular Hgb 29.6 pg (27.0-32.0); Mean Corpuscular Volume 90.4 fL (81-99); Mean Platelet Vol. 11.6 fl (6.2-12.0); Monocyte# 0.23 X10^3/uL; Monocyte% 4.6 % (0-10); NRBC Flagged by Analyzer 0 % (0-5); Neutrophil % 69.2 % (47-70); Platelet Count 194 K/mm3 (150-450); RBC Distribution Width CV 12.8 % (11.6-14.6); RBC Distribution Width SD 42.3 fl (35.1-43.9); Red Blood Count 4.25 M/mm3 (4.2-5.4); White Blood Count 5.1 K/mm3 (4.4-11.0)
[2024-08-10 13:24] LABS: International Normalized Ratio 1.1
[2024-08-10 13:39] LABS: AST(SGOT) 27 U/L (15-37); Alanine Aminotransfer ALT/SGPT 43 U/L (13-56); Albumin, Serum 3.7 g/dL (3.2-5.0); Alkaline Phosphatase 116 U/L (45-117); Anion Gap 3 (5-15); BUN 17 mg/dL (7-18); BUN/Creat Ratio 21.5 RATIO (10-20); Calcium,Total 10.6 mg/dL (8.5-10.1); Chloride 106 mmol/L (98-107); Creatinine, Serum 0.79 mg/dL (0.55-1.02); EST Glomerular Filtration Rate 77 mL/min (>60); Est Glom Filt Rate - Afr Amer 94 mL/min (>60); Globulin 3.7 g/dL (2.2-4.2); Glucose 103 mg/dL (74-106); Potassium 3.4 mmol/L (3.5-5.1); Protein, Total 7.4 g/dL (6.4-8.2); Sodium Level 141 mmol/L (136-145)
[2024-08-15 06:20] VITALS: BP 148/86; PULSE 64; RESP 18; TEMP 37; O2SAT 98; BMI 28.5
[2024-08-15 06:39] VITALS: BP 148/86; PULSE 64; RESP 18; TEMP 37; O2SAT 98
--- NOTE | 2024-08-15 06:39 | PCM.PRE.AN2 ---
ASA Classification* ASA Classification ASA Classification: 2 Assessment & Plan Anesthesia* Anesthesia Assessment Anesthesia Assessment: Discussed sedation and/or anesthesia options, risks, benefits, and alternatives with patient/parents/legal guardian/POA. Questions invited. The patient/parents/legal guardian/POA seems to understand and agrees to proceed with anesthesia plan. Reviewed the physical assessment, medical history, allergy history and patient home medications list prior to surgery/procedure/anesthetic and documented any changes. Performed airway and anesthesia risk assessments. Anesthesia Type Anesthesia Type: MAC (VS GA if surgeon rq) Anesthesia Focused Assessment* Temperature: 98.6 F Pulse Rate: 64 Blood Pressure: 148/86 Respiratory Rate: 18 Pulse Ox: 98 Airway Assessment Mouth opens: >3 cm Mallampati Score: II Focused Labs Anesthesia Preop lab: CBC WBC 5.1 K/mm3 (4.4-11.0) 08/10/24 12:13 RBC 4.25 M/mm3 (4.2-5.4) 08/10/24 12:13 Hgb 12.6 g/dL (12.0-15.0) 08/10/24 12:13 Hct 38.4 % (37-47) 08/10/24 12:13 Plt Count 194 K/mm3 (150-450) 08/10/24 12:13 CHEMISTRY Potassium 3.4 mmol/L (3.5-5.1) L 08/10/24 12:13 Sodium 141 mmol/L (136-145) 08/10/24 12:13 BUN 17 mg/dL (7-18) 08/10/24 12:13 Creatinine 0.79 mg/dL (0.55-1.02) 08/10/24 12:13 Glucose 103 mg/dL (74-106) 08/10/24 12:13 TSH 0.995 uIU/mL (0.358-3.740) 07/12/24 10:50 COAG PT 14.0 SECONDS (11.7-14.9) 08/10/24 12:13 Pre-Assessment Diagnosis/Proposed Procedure Planned Operative Procedure(s): (R) Excision right cheek lesion, excision right chest mass Anesthesia History Anesthesia History - toxicology supervisor: Anesthesia History - toxicology supervisor Hx Hospitalization No 08/09/24 11:12 Any Problems With Anesthesia No 08/09/24 11:12 Cholinesterase deficiency No 08/09/24 11:12 You/Your Family Experience No 08/09/24 11:12 fever (hyperthermia) with Relationship Recent Exposure to Contagious No 08/15/24 06:20 Disease Does patient have nerve No 08/09/24 11:12 stimulator Patient instructed to have device shut off --Does patient have Pacemaker No 08/15/24 06:20 or ICD? When Was Last Pacemaker Check QUESTION #4 FULL TEXT: You/Your Family Experience fever (hyperthermia) with Anesthesia Last Oral Intake Last Oral intake: Last Oral Intake NPO since 19:00 08/15/24 06:20 Meds taken in AM with sips of No 08/15/24 06:20 water? Meds patient instructed to take am of surgery PONV PONV - toxicology supervisor: PONV - toxicology supervisor Female Yes 08/09/24 11:12 HX of Motion Sickness No 08/09/24 11:12 HX of N/V After Surgery No 08/09/24 11:12 Non-Smoker Yes 08/09/24 11:12 Duration of Surgery greater No 08/09/24 11:12 than 60 minutes Number of Risk Factors 2 08/09/24 11:12 PONV Score Moderate Risk 08/09/24 11:12 Height & Weight Height & Weight: Anesthesia: Height & Weight Height 5 ft 3 in 08/15/24 06:20 Weight: 73 kg 08/15/24 06:20 Body Mass Index (BMI) 28.5 08/15/24 06:20 Respiratory Assessment Respiratory Assessment - toxicology supervisor: Respiratory Tract Infection Hx - toxicology supervisor Hx Respiratory Tract Infection No 08/09/24 11:12 STOP Sleep Apnea STOP Sleep Apnea - toxicology supervisor: STOP Sleep Apnea - toxicology supervisor Hx Hypertension Yes: CONTROLLED WITH MED 08/09/24 11:12 Hx Sleep Apnea No 08/09/24 11:12 CPAP No 07/17/15 10:44 BIPAP No 07/15/15 10:51 Do you snore loudly (louder No 08/09/24 11:12 than talking or can be heard Do you often feel tired/ No 08/09/24 11:12 fatigued/ sleepy during daytime? Has anyone observed you stop No 08/09/24 11:12 breathing during sleep? STOP Results Negative 08/09/24 11:12 QUESTION #5 FULL TEXT : Do you snore loudly (louder than talking or can be heard through closed doors)? Tobacco Use History Tobacco Use History - toxicology supervisor: Tobacco Use History - toxicology supervisor Tobacco Use Smoking Status Former smoker 08/09/24 11:12 Hx Tobacco Use No 08/09/24 11:12 Years Smoking Packs Smoked per Day Smoking Cessation Date was No - quit smoking greater 08/09/24 11:12 within the last 15 years than 15 years ago Hx Smoking Cessation Date 10/24/94 08/09/24 11:12 Hx Smoking Cessation Counseling Hematologic Medial History Hematologic Hx - toxicology supervisor: Hematologic Medical Hx - bean weigher Hx of Blood Transfusion No 08/09/24 11:12 Hx of Transfusion in last 3 No 08/09/24 11:12 Months Date of Last Transfusion (if within last 3 months) Ever experience any problems No 08/09/24 11:12 with transfusion(s)? Specify any problems Hx of Preganancy in last 3 N/A 08/09/24 11:12 Months Nurse Filling Out Transfusion NBUCHER 08/09/24 11:12 & Questions: Date: 08/09/24 08/09/24 11:12 Time: 11:13 08/09/24 11:12 Patient unable to answer at this time (ie. confused, unrespo /Reproduction History /Reproductive History - toxicology supervisor: /Reproductive Hx- toxicology supervisor Hx Now No 08/09/24 11:12 Gestational Age (in weeks): EDC: Hx Hx Para Hx Section SAB No 08/09/24 11:12 Active Medications Active Medications: Current Medications Generic Name Dose Route Start Last Admin Trade Name Freq PRN Reason Stop Dose Admin Cefazolin Sodium 2 gm/ N/A 20 mls @ 400 mls/hr 08/15/24 09:55 IV 08/15/24 09:57 PREOP ONE PFSH Medical History Wears glasses Wears partial dentures Depression Anxiety History of steroid therapy Heartburn Gastric reflux Former smoker Chronic cough History of stress test Vision problems Acid reflux Pneumonia High cholesterol High blood pressure Anxiety and depression Drug abuse Diabetes Breast lump Alcohol abuse Home Medications ?Medication ?Instructions ?Recorded ?Last Taken ?Type lisinopril 20 mg tablet 20 mg PO QHS 07/15/15 Unknown History atorvastatin 10 mg tablet 10 mg PO QHS 07/20/24 Unknown History omeprazole 20 mg capsule,delayed 20 mg PO QHS 07/20/24 Unknown History release paroxetine HCl 10 mg tablet (Paxil) 10 mg PO QHS 07/20/24 Unknown History semaglutide 0.25 mg or 0.5 mg (2 0.5 mg subcut MO 07/20/24 08/06/24 History mg/3 mL) subcutaneous pen injector (Ozempic) trazodone 100 mg tablet 100 mg PO QHS 08/09/24 08/13/24 History Allergy/AdvReac Type Severity Reaction Status Date / Time codeine Allergy Itching Verified 08/15/24 06:27 Family History Mother Bleeding disorder Arthritis Diabetes Kidney disease Hypertension COPD (chronic obstructive pulmonary disease) Brother Colon cancer Surgical History History of colonoscopy History of lumpectomy H/O: hysterectomy Social History Smoking Status: Former smoker how long ago did patient quit smokin yrs ago alcohol intake: former substance use type: does not use additional social history: no marijuana, no vaping, no edibles, no asa, no ibuprofen, pt mother hx of blood clots Review of Systems (Anesthesia) ROS Narrative System reviewed and no additional complaints, except as documented.
[2024-08-15 06:55] LABS: Bedside Glucose 97 mg/dL (74-106)
--- NOTE | 2024-08-15 07:30 | LES_PTH ---
PATIENT: EBONI ROQUE LOC: [facility] [place] U#:[id number] AGE/SX: 68/F ROOM: RE08/15/[address]: Dr. Vishal Sherwood MD : 1955 BED: DIS: 08/15/2024 SPEC #: [id number] RECD: 08/15/24 10:18 STATUS: SUNDEEP REXavi #: [id number] ILEANA: 08/15/24 07:[address]: Vishal Sherwood DEPT: SURGICAL PATHOLOGY RECD BY: Sp Mehta ENTERED: 08/15/24 11:57 SP TYPE: Lesion OTHR DR: Dr. Daniel Barahona MD Tissues: A - Skin of chest B - Skin of face, NOS Procedures: Surgery Specimen Level IV HEADER OPERATION: Excision right cheek lesion, excision right cheek mass PRE-OP DIAGNOSIS: Right cheek lesion and right chest wall mass TISSUE SUBMITTED: A- Right chest mass, B- Right face lesion MICROSCOPIC DIAGNOSIS A. Soft tissue mass of right chest, excision: Mature adipose tissue consistent with lipoma. B. Skin lesion of right face, biopsy: Verrucoid keratosis, mildly inflamed. Focal mild actinic change. . 08/16/2024 MICROSCOPIC DESCRIPTION Slides are reviewed. GROSS DESCRIPTION A. Received in fixative is one container labeled with the patient name and designated lipoma. The specimen consists of an irregular piece of adipose tissue measuring 7.5 x 6.5 x 2.0 cm. The external surface is inked. Sections reveal yellow adipose cut surfaces without areas of hemorrhage, necrosis or cystic degeneration. Product Safety Officer sections are submitted in two cassettes. B. Received in fixative is one container labeled with the patient's name and designated Right face lesion. The specimen consists of a piece of man-white skin measuring 0.4 x 0.3 x 0.3cm. The specimen is inked, bisected and submitted entirely in one cassette. 08/15/2024 TC:5 CPT:[id number]
[2024-08-15] MEDS: Cefazolin 2 GM in Syringe IV (07:37)
--- NOTE | 2024-08-15 07:41 | PCM.HP.STD ---
HPI - General HPI Narrative EBONI ROQUE, is a 68 F who presents right cheek lesion and right chest wall mass. Current Encounter (DATE OF SURGERY H&P UPDATE): I saw and examined the patient this morning in pre-operative holding. We discussed risks and benefits of today's surgery and they would like to proceed. NO CHANGE in health history since last seen and evaluated. Ready to proceed with surgery. PFSH Medical History Wears glasses Wears partial dentures Depression Anxiety History of steroid therapy Heartburn Gastric reflux Former smoker Chronic cough History of stress test Vision problems Acid reflux Pneumonia High cholesterol High blood pressure Anxiety and depression Drug abuse Diabetes Breast lump Alcohol abuse Home Medications ?Medication ?Instructions ?Recorded ?Last Taken ?Type lisinopril 20 mg tablet 20 mg PO QHS 07/15/15 Unknown History atorvastatin 10 mg tablet 10 mg PO QHS 07/20/24 Unknown History omeprazole 20 mg capsule,delayed 20 mg PO QHS 07/20/24 Unknown History release paroxetine HCl 10 mg tablet (Paxil) 10 mg PO QHS 07/20/24 Unknown History semaglutide 0.25 mg or 0.5 mg (2 0.5 mg subcut MO 07/20/24 08/06/24 History mg/3 mL) subcutaneous pen injector (Ozempic) trazodone 100 mg tablet 100 mg PO QHS 08/09/24 08/13/24 History Allergy/AdvReac Type Severity Reaction Status Date / Time codeine Allergy Itching Verified 08/15/24 06:27 Family History Mother Bleeding disorder Arthritis Diabetes Kidney disease Hypertension COPD (chronic obstructive pulmonary disease) Brother Colon cancer Surgical History History of colonoscopy History of lumpectomy H/O: hysterectomy Social History Smoking Status: Former smoker how long ago did patient quit smokin yrs ago alcohol intake: former substance use type: does not use additional social history: no marijuana, no vaping, no edibles, no asa, no ibuprofen, pt mother hx of blood clots Vital Signs Vital Signs Vital Signs: 08/15/24 06:20 08/15/24 06:39 Temperature 98.6 F 98.6 F Temperature Source Temporal Pulse Rate 64 64 Respiratory Rate 18 18 Blood Pressure 148/86 H 148/86 H Blood Pressure Mean 106 Blood Pressure Source Monitor Blood Pressure Position Semi-Fowlers Blood Pressure Location Right Arm Pulse Ox 98 98 Oxygen Delivery Method Room Air Weight Weight: 160 lb 14.999 oz Body Mass Index (BMI) 28.5 Physical Exam Narrative Right cheek with a 0.5 x 0.5 cm pigmented lesion that is raised. No palpable neck lymphadenopathy. The right lateral chest wall has an 10 x 8 cm mobile mass that appears to be in the subcutaneous tissue. No axillary lymphadenopathy Results Lab / Micro Data 08/10/24 12:13 08/10/24 12:13 Labs: Laboratory Results - last 24 hr 08/15/24 06:06: POC Glucose 97 Assessment & Plan Assessment/Plan (1) Mass of right chest wall: (2) Pigmented skin lesion: PLAN: Plan INTERVAL H&P PLAN, DATE OF SURGERY: We will proceed with surgery today. I talked the patient extensively about the risks of surgery, including bleeding, infection, damage to surrounding structures, surgical site dehiscence and wound formation, need for wound care, need for repeat operations, failure to obtain the desired result, DVT/PE, and the risks of anesthesia including . The benefits and alternatives of this surgery were also discussed. All of their questions were answered, and they agreed to proceed with surgery.
[2024-08-15] MEDS: Bupiv/Epi 0.25% 30 ML Vial (08:25)
[2024-08-15 08:36] VITALS: BP 148/86; BP 153/87; PULSE 71; RESP 16; TEMP 36.2; O2SAT 98
[2024-08-15 08:40] VITALS: BP 136/81; BP 148/86; BP 153/87; PULSE 66; PULSE 98; RESP 16; TEMP 36.2; O2SAT 98
--- NOTE | 2024-08-15 08:40 | PCM.POST.ANE ---
Anesthesia: Postop Eval I Current Vital Signs Temperature: 97.1 F Pulse Rate: 98 Blood Pressure: 153/87 Respiratory Rate: 16 Pulse Ox: 98 Oxygen Delivery Method: Room Air Assessment Airway patent: Yes Spontaneous unlabored respirations: Yes Mental status: Awake and Calm nausea: No Vomiting: No Anesthesia Complication: No Fluid Hydration Crystalloid volume administer (ml): 600 Total IV fluid infused: 600 Progress Note Anesthesia document: Postop Eval 1 completed: Yes
--- NOTE | 2024-08-15 08:41 | PCM.POSTANE2 ---
Anesthesia Postop Eval I Sum Postop Eval Completion status Anesthesia document: Postop Eval 1 completed: Yes Anesthesia Postop Eval I Summary Anesthesia Postop Eval I Summary: Anesthesia Postop Eval I: Assessment Summary Airway patent Yes 08/15/24 08:40 Spontaneous unlabored Yes 08/15/24 08:40 respirations Mental status Awake,Calm 08/15/24 08:40 nausea No 08/15/24 08:40 Vomiting No 08/15/24 08:40 Anesthesia Postop Eval I: Fluid Summary Crystalloid volume administer 600 08/15/24 08:40 (ml) Colloids volume administered ( ml) Blood Product volume administered (ml) Total IV fluid infused 600 08/15/24 08:40 Anesthesia Postop Eval I: Summary Notes Anesthesia Complication No 08/15/24 08:40 Anesthesia Complication Comment: Post-operative progress note Anesthesia: Postop Eval II Evaluation Mental status: Awake Pain Level: 0 nausea: No Vomiting: No
--- NOTE | 2024-08-15 08:41 | PCM.OPRPT ---
Operative Report (Standard) Operative Information Surgery/Procedure Performed:: Right chest wall mass removal, right cheek lesion removal Surgeon: Vishal Sherwood RN Documented Start/Stop Times: Operation Date: 08/15/24 07:30 Case Time Into Pre-Op 08/15/24 05:52 Out of Pre-Op 08/15/24 07:33 Anesthesia Start 08/15/24 07:37 Into Room 08/15/24 07:37 Procedure Start 08/15/24 08:00 Procedure End 08/15/24 08:27 Anesthesia End 08/15/24 08:33 Out of Room 08/15/24 08:33 Into Recovery 08/15/24 08:36 Date of Procedure: 08/15/24 Procedure Start Time: 08:00 Procedure Stop Time: 08:27 Pre-Operative Diagnosis: Right chest wall mass, right cheek lesion Post-Operative Diagnosis: same Select all DRAINS/GRAFTS/IMPLANTS that apply:: Drains Drain details: 15 Fr ebata right chest Type of Anesthesia: General and Local (18 cc of 0.25% marcaine with 1:100,000 epinephrine ) Special Medications: Ancef 2 grams preop Estimated Blood Loss: 10 cc Fluids Replaced: 600 cc LR Specimen collected: Yes Description of specimen(s) removed: Right chest wall mass, right cheek lesion Description of surgery: Surgery/Procedure Date: 15 Aug 2024 PATIENT: She Washburn PROCEDURE PERFORMED: 1) Excision of subcutaneous mass, 7 x 8 cm, CPT: 03452 2) Intermediate closure of wound, 6.5 cm cm, CPT 58176 3) Excision right cheek lesion, 0.5 x 0.5 cm, CPT: 76928 with 59 modifier 4) Simple closure right cheek lesion, 0.5 cm, CPT 10285 WITH 59 modifier INDICATIONS: She Washburn is a 68 YO female with a right cheek lesion and a right chest mass. Presents today for excision. We discussed risks of infection, bleeding, damage to surrounding structures, return of the mass and need for repeat surgeries, healing problems/dehiscence of the wound and need for wound care, and risks from anesthesia. OPERATIVE DETAILS: The patient was correctly notified in preoperative holding, and I marked them (the mass was confirmed, the patient agreed with the site marking on the face and the right chest wall). They were taken back to the operating room where they were administered general anesthesia and placed in the supine positioning. Care was taken to pad all bony prominences and protect the face and eyes. Once appropriate level of anesthesia was obtained, the site was prepped and draped in sterile fashion. A 15 blade scalpel was used to make a direct incision over the right chest wall mass, and dissection was carried out with Bovie electrocautery around the mass which was in the subcutaneous layer. Dissection was carried out with tenotomy scissors around the mass and it was removed in one piece. Hemostasis was obtained with Bovie electrocautery. The wound was irrigated with copious amounts of normal saline. It measured 7 x 8 centimeters. The mass was sent to pathology. Attention was then turned to intermediate closure of the wound, which was 6.5 centimeters long. Deep sutures were placed 3-0 PDS and 3-0 mocoryl deep dermal and subcuticular sutures. A local block was then performed with 0.25 % bupivucaine with epi. The closure was over a 15 Fr beata drain. Steri-Strips were applied and a Primapore dressing was placed on top. Attention was then turned to the right cheek lesion, which was excised in an elipse full thickness for excision of benign lesion of 0.5 x 0.5 cm . The closure was performed with 5-0 prolene interuppted suture and steri strips for a 0.5 cm simple closure. The patient tolerated the procedure well and was awakened and taken the PACU in stable condition. ASA: 2 Surgical Findings: Fatty mass on the right chest wall , overlying serratus fascia [employer] Director control and recovery special tactics: Yes Development Scientist: Nayla Carrillo Tasks completed by fist assist: Retracting Complications Complications: No Admit VTE Documentation VTE Mechan Device Prophylaxis: SCD's
[2024-08-15 08:45] VITALS: BP 133/79; BP 148/86; PULSE 63; RESP 16; TEMP 36.1; O2SAT 96
[2024-08-15 09:25] VITALS: BP 148/86
== END 2024-08-15 09:38 | disposition home or self-care (01) ==
LOC: SDC 05:42 → AC 05:43
PROVIDERS: PCP Family Medicine Geriatric Medicine; Referring Provider Surgery Plastic and Reconstructive Surgery; Visit Provider Surgery Plastic and Reconstructive Surgery
PROC: (CPT 21552; principal; 2024-08-15 07:20)
DX: D17.0 Benign lipomatous neoplasm of skin and subcutaneous tissue of head, face and neck (principal); E11.9 Type 2 diabetes mellitus without complications; E78.00 Pure hypercholesterolemia, unspecified; Z87.891 Personal history of nicotine dependence; K21.9 Gastro-esophageal reflux disease without esophagitis; I10 Essential (primary) hypertension; L82.0 Inflamed seborrheic keratosis; Z79.899 Other long term (current) drug therapy; Z79.85 Long-term (current) use of injectable non-insulin antidiabetic drugs; F32.A Depression, unspecified
CPT/HCPCS: 21552; 11440; 00300; 36415; 80053; 82962; 85025; 85610; 88305; 93005; A4216; J2405

== ENCOUNTER → 2024-08-31 | Outpatient (CLI) | payer MEDICARE, MEDICAID, SELFPAY | END | disposition home or self-care (01) | LOC: NM 09:30 | PROVIDERS: PCP Family Medicine Geriatric Medicine; Referring Provider Family Medicine Geriatric Medicine; Visit Provider Family Medicine Geriatric Medicine | DX: E83.52 Hypercalcemia (principal); Z78.0 Asymptomatic menopausal state | CPT/HCPCS: 78070; A9500 ==

== ENCOUNTER → 2024-09-06 | Outpatient (CLI) | payer MEDICARE, MEDICAID, SELFPAY ==
[2024-09-06 11:33] LABS: Anion Gap 1 (5-15); BUN 19 mg/dL (7-18); BUN/Creat Ratio 23.8 RATIO (10-20); Calcium,Total 10.6 mg/dL (8.5-10.1); Chloride 105 mmol/L (98-107); EST Glomerular Filtration Rate 76 mL/min (>60); Est Glom Filt Rate - Afr Amer 92 mL/min (>60); Glucose 98 mg/dL (74-106); Potassium 3.7 mmol/L (3.5-5.1); Sodium Level 140 mmol/L (136-145)
== END | disposition home or self-care (01) ==
LOC: POLAB3 10:22
PROVIDERS: PCP Family Medicine Geriatric Medicine; Visit Provider Family Medicine Geriatric Medicine
DX: E21.0 Primary hyperparathyroidism (principal)
CPT/HCPCS: 36415; 80048

== ENCOUNTER → 2024-09-14 | Outpatient (CLI) | payer MEDICARE, MEDICAID, SELFPAY ==
--- NOTE | 2024-09-14 09:46 | US_ITS ---
EXAM: US SOFT TISSUES HEAD AND NECK, THYROID CLINICAL INDICATION: PARATHYROID ADENOMA TECHNIQUE: Griffin scale and color doppler imaging was performed of the thyroid gland. COMPARISON: No relevant prior studies available. FINDINGS: LEFT THYROID LOBE: Left thyroid lobe measures 6.0 x 2.6 x 2.2 cm. A 3 cm wider than tall predominantly solid isoechoic nodule within or adjacent to the left thyroid lobe without microcalcification and with fairly well-defined borders. TI-RADS points: 3. TI-RADS category: TR3. This nodule is mildly suspicious. Recommend FNA evaluation. Additional colloid cyst within the left thyroid lobe. RIGHT THYROID LOBE: Right thyroid lobe measures 5.6 x 2.3 x 1.7 cm. There are multiple subcentimeter colloid cyst within the right thyroid lobe. Homogeneous echotexture with normal vascularity. ISTHMUS: Isthmus measures less than 2 mm in thickness. No thyroid nodules are present. US/Thyroid IMPRESSION: 3 cm nodule within or adjacent to the left thyroid lobe with TR score of 3. FNA recommended. Electronically Signed: Giles Pederson MD at 13:56 EST ,
== END | disposition home or self-care (01) ==
LOC: US 09:45
PROVIDERS: PCP Family Medicine Geriatric Medicine; Referring Provider Family Medicine Geriatric Medicine; Visit Provider Family Medicine Geriatric Medicine
DX: D35.1 Benign neoplasm of parathyroid gland (principal)
CPT/HCPCS: 76536

== ENCOUNTER → 2024-10-03 | Outpatient (CLI) | payer MEDICARE, MEDICAID, SELFPAY ==
--- NOTE | 2024-10-03 08:52 | BD_ITS ---
STUDY: DUAL ENERGY X-RAY ABSORPTIOMETRY / DXA REASON FOR EXAM: Female, 69 years old. Z780 TECHNIQUE: Bone Mineral Density (BMD) measurements of lumbar spine and bilateral hips were obtained. COMPARISON: Comparison is made with prior study of January 12, 2022. FINDINGS: Lumbar Spine (L1-L4): g/cm2 (1.119) / T-score (0.7) / Z-score (2.6) Findings are suggestive of normal bone density with a low fracture risk. Left Femur Total: g/cm2 (0.866) / T-score (-0.6) / Z-score (0.7) Left Femoral Neck: g/cm2 (0.722) / T-score (-1.1) / Z-score (0.5) Right Femur Total: g/cm2 (0.883) / T-score (-0.5) / Z-score (0.8) Right Femoral Neck: g/cm2 (0.729) / T-score (-1.1) / Z-score (0.5) The T-Scores on the most recent prior examination were: Lumbar Spine (L1-L4): There has been worsening of bone density since the previous examination. Left Femur Total: which represents a worsening of 8.4%. Right Femur Total: which represents a worsening of 6.1%. BD/Dexa Bone Density Study IMPRESSION: The patient is considered osteopenic as outlined below according to World Cesar Organization (WHO) criteria with a low fracture risk. There has been worsening of bone density since the previous examination. Reference Information: The T-score is the number of standard deviations above or below the standard which is normal for young adults at their peak bone mineral density. The World Health Organization (WHO) interprets the T-scores as follows: Above -1 Normal bone density Between -1 and -2.5 Osteopenia Equal to / or below -2.5 Osteoporosis As a practical clinical guideline, osteopenia may be graded as follows: Mild -1 through -1.5 Moderate -1.6 through -2.0 Severe -2.1 through -2.4 The Z-score is the number of standard deviations above or below age-matched controls. A Z-score of less than -1.5 would be considered abnormal. References: 1. NIH Osteoporosis and Related Bone Diseases www osteo.org 2. International Society for Clinical Densitometry www iscd.org 3. National Osteoporosis Foundation www nof.org Electronically Signed: Navin Quevedo MD at 12:37 EST ,
== END | disposition home or self-care (01) ==
LOC: OPBD 08:37
PROVIDERS: PCP Family Medicine Geriatric Medicine; Referring Provider Family Medicine Geriatric Medicine; Visit Provider Family Medicine Geriatric Medicine
DX: E83.52 Hypercalcemia (principal); Z78.0 Asymptomatic menopausal state
CPT/HCPCS: 77080

== ENCOUNTER → 2024-10-05 | Outpatient (CLI) | payer MEDICARE, MEDICAID, SELFPAY ==
--- NOTE | 2024-10-05 09:00 | FLU_PTH ---
PATIENT: EBONI ROQUE LOC: [facility] U#:[id number] AGE/SX: 69/F ROOM: RE10/05/[address]: Dr. Fletcher Gould MD : 1955 BED: DIS: 10/05/2024 SPEC #: [id number] RECD: 10/05/24 10:31 STATUS: SUNDEEP PRACHI #: [id number] ILEANA: 10/05/24 09:[address]: Fletcher Gould DEPT: CYTOLOGY RECD BY: Mariana Mota ENTERED: 10/05/24 12:06 SP TYPE: Fluid OTHR DR: Dr. Daniel Barahona MD Tissues: A - Thyroid gland, NOS B - Thyroid gland, NOS Procedures: Special Stain Group II Surgery Specimen Level IV Cytospin Fluid Cytology Other HEADER OPERATION: Fine needle aspiration of thyroid nodule PRE-OP DIAGNOSIS: Thyroid nodule TISSUE SUBMITTED: A- Left mid thyroid nodule fluid, B- Left mid thyroid nodule slides DIAGNOSIS CYTOLOGY A. Left mid thyroid nodule fluid, fine needle aspiration (cytospins and cellblock): Atypical follicular cells of undetermined significance, [place] Category III. Adequate for evaluation. B. Left mid thyroid nodule, fine needle aspiration (smears): Suspicious for follicular neoplasm, [place] Category IV. Adequate for evaluation. 10/09/2024 COMMENT Correlation with clinical, radiologic findings and appropriate follow up are necessary. Per recommendations and a clinician-approved plan (a call was made to the referring doctor about the recommendation), genomic testing (Afirma) has been submitted. Results will be reported as an addendum and faxed to clinician. The [place] System for thyroid diagnostic categorization was used in the evaluation of this case. Case has been reviewed in consultation with Dr. Moreira who concurs with the above diagnosis. IDC:AM CYTOLOGY STUDY Slides are reviewed. CYTOLOGY GROSS A. Received is 30 ml of red-cloudy fluid labeled with the patient's name and and designated per the requisition as Left mid thyroid nodule. Submitted for cytology preparation including cell block. B. Received are 4 smears labeled with the patient's name and designated per the requisition as Left mid thyroid nodule. Submitted for staining. 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 This genomic alteration is associated with PTC and a BRAF [id number] profile, which includes a higher rate of lymph node metastases and extrathyroidal extension than alterations that are SKYLAR-like, or [id number] like. Clinical correlation and surgical resection should be considered. Please see complete report in e-chart or EMR
[2024-10-05 13:15] LABS: Free T3 2.5 pg/mL (2.18-3.98); T4 Free Direct 1.17 ng/dL (0.76-1.46); Thyroid Stim Hormone (TSH) 0.787 uIU/mL (0.358-3.740)
[2024-10-08 15:43] LABS: Vitamin D,25 Hydroxy 29.8 ng/mL
== END | disposition home or self-care (01) ==
LOC: LABSPEC 10:44 → LAB 11:29
PROVIDERS: PCP Family Medicine Geriatric Medicine; Referring Provider Surgery; Visit Provider Surgery
DX: E04.1 Nontoxic single thyroid nodule (principal); E83.52 Hypercalcemia
CPT/HCPCS: 36415; 82306; 83970; 84439; 84443; 84481; 88108; 88161; 88305; 88313

== ENCOUNTER → 2024-10-11 | Outpatient (CLI) | payer MEDICARE, MEDICAID, SELFPAY ==
[2024-10-11 09:46] LABS: Absolute Lymphocyte Count 1.31 X10^3/uL (0.83-4.51); Absolute Neutrophil Count 3.8 X10^3/uL (2.0-7.7); Basophil# 0.02 X10^3/uL; Basophil% 0.4 % (0-1); Eosinophil# 0.06 X10^3/uL; Eosinophils% 1.1 % (0-5); Hematocrit 38.9 % (37-47); Hemoglobin 12.7 g/dL (12.0-15.0); Lymphocyte # 1.31 X10^3/ul (0.83-4.51); Lymphocyte % 23.6 % (19-41); Mean Corp Hgb Conc 32.6 g/dL (32-36); Mean Corpuscular Hgb 29.7 pg (27.0-32.0); Mean Corpuscular Volume 91.1 fL (81-99); Monocyte# 0.32 X10^3/uL; Monocyte% 5.8 % (0-10); NRBC Flagged by Analyzer 0 % (0-5); Neutrophil # 3.81 X10^3/uL (2.7-7.7); Neutrophil % 68.7 % (47-70); Platelet Count 179 K/mm3 (150-450); RBC Distribution Width CV 12.5 % (11.6-14.6); RBC Distribution Width SD 41.4 fl (35.1-43.9); Red Blood Count 4.27 M/mm3 (4.2-5.4); White Blood Count 5.5 K/mm3 (4.4-11.0)
[2024-10-11 10:11] LABS: Vitamin D,25 Hydroxy 27.8 ng/mL
[2024-10-11 10:17] LABS: Hemoglobin A1c 5.2 % (3.8-5.6)
[2024-10-11 10:21] LABS: ALB/GLOB Ratio 1.1 RATIO (0.9-2.4); AST(SGOT) 24 U/L (15-37); Alanine Aminotransfer ALT/SGPT 42 U/L (13-56); Albumin, Serum 3.9 g/dL (3.2-5.0); Alkaline Phosphatase 115 U/L (45-117); Anion Gap 4 (5-15); BUN 18 mg/dL (7-18); BUN/Creat Ratio 21.4 RATIO (10-20); Calcium,Total 10.7 mg/dL (8.5-10.1); Chloride 104 mmol/L (98-107); Cholesterol 121 mg/dL (200); Creatinine, Serum 0.84 mg/dL (0.55-1.02); EST Glomerular Filtration Rate 72 mL/min (>60); Est Glom Filt Rate - Afr Amer 87 mL/min (>60); Globulin 3.5 g/dL (2.2-4.2); Glucose 101 mg/dL (74-106); High Density Lipoprotein 54 mg/dL; Potassium 3.4 mmol/L (3.5-5.1); Protein, Total 7.4 g/dL (6.4-8.2); Sodium Level 141 mmol/L (136-145); Triglycerides 87 mg/dL; Very Low Density Lipoprotein 17 mg/dL (5-40)
== END | disposition home or self-care (01) ==
LOC: POLAB3 09:31
PROVIDERS: PCP Family Medicine Geriatric Medicine; Visit Provider Family Medicine Geriatric Medicine
DX: I10 Essential (primary) hypertension (principal); E11.65 Type 2 diabetes mellitus with hyperglycemia; E55.9 Vitamin D deficiency, unspecified; E78.5 Hyperlipidemia, unspecified
CPT/HCPCS: 36415; 80053; 80061; 82306; 83036; 84443; 85025

== ENCOUNTER → 2024-11-05 | Outpatient (CLI) | payer MEDICARE, MEDICAID, SELFPAY ==
--- NOTE | 2024-11-05 09:54 | US_ITS ---
STUDY: THYROID ULTRASOUND REASON FOR EXAM: Female, 69 years old. Thyroid nodules -- lymph node mapping . Recent left thyroid biopsy. TECHNIQUE: Ultrasound evaluation of the thyroid was performed with real-time and static kay-scale imaging. COMPARISON: Comparison is made with prior sonogram of the thyroid dated September 14, 2024. FINDINGS: Right-side of the neck: There is a 1.4 cm x 1 cm x 0.5 cm hypoechoic ovoid nodule. No fatty hilum is identified. There is also evidence of an 8 mm x 7 mm x 2 mm hypoechoic ovoid nodule without a fatty hilum. In zone 3, there are 3 small benign-appearing lymph nodes. The larger measures 1 cm x 0.5 cm x 0.6 cm. Left side of the neck: Several lymph nodes are seen. In zone 2, there is a 1.4 cm x 1 cm x 0.6 cm hypoechoic nodule with irregular borders. No fatty hilum is identified. In zone 3, there are 2 adjacent 6 mm x 6 mm x 2 mm hypoechoic well-defined nodules US/Head/Neck Soft Tissue IMPRESSION: Suspicious lymph nodes are seen in both sides of the neck as described. Electronically Signed: Navin Quevedo MD at 8:29 EST ,
== END | disposition home or self-care (01) ==
LOC: US 09:53
PROVIDERS: PCP Family Medicine Geriatric Medicine; Referring Provider Surgery; Visit Provider Surgery
DX: E04.1 Nontoxic single thyroid nodule (principal)

== ENCOUNTER → 2025-02-19 | Outpatient (CLI) | payer MEDICARE, MEDICAID, SELFPAY ==
[2025-02-19 12:15] LABS: Absolute Neutrophil Count 4.3 X10^3/uL (2.0-7.7); Basophil# 0.02 X10^3/uL; Basophil% 0.4 % (0-1); Eosinophil# 0.08 X10^3/uL; Eosinophils% 1.4 % (0-5); Hematocrit 37.1 % (37-47); Hemoglobin 12.4 g/dL (12.0-15.0); Lymphocyte % 15.8 % (19-41); Mean Corp Hgb Conc 33.4 g/dL (32-36); Mean Corpuscular Hgb 30.3 pg (27.0-32.0); Mean Corpuscular Volume 90.7 fL (81-99); Mean Platelet Vol. 11.3 fl (6.2-12.0); Monocyte# 0.35 X10^3/uL; Monocyte% 6.2 % (0-10); NRBC Flagged by Analyzer 0 % (0-5); Neutrophil # 4.32 X10^3/uL (2.7-7.7); Neutrophil % 75.8 % (47-70); Platelet Count 195 K/mm3 (150-450); RBC Distribution Width CV 12.5 % (11.6-14.6); RBC Distribution Width SD 41.9 fl (35.1-43.9); Red Blood Count 4.09 M/mm3 (4.2-5.4); White Blood Count 5.7 K/mm3 (4.4-11.0)
[2025-02-19 12:45] LABS: Hemoglobin A1c 5.9 % (<=5.6)
[2025-02-19 12:49] LABS: Microalbumin,Random Urine 13.2 mg/L (NO RANGE EST.)
[2025-02-19 13:05] LABS: ALB/GLOB Ratio 1.4 RATIO (0.9-2.4); AST(SGOT) 25 U/L (<=31); Alanine Aminotransfer ALT/SGPT 20 U/L (<=34); Albumin, Serum 4.1 g/dL (3.4-4.8); Alkaline Phosphatase 115 U/L (35-104); Anion Gap 10 (5-15); BUN 17 mg/dL (4-19); BUN/Creat Ratio 22.3 RATIO (10-20); Calcium,Total 9.4 mg/dL (7.6-11.0); Carbon Dioxide 28.1 mmol/L (21.0-32.0); Chloride 104 mmol/L (98-108); Creatinine, Serum 0.78 mg/dL (0.70-1.20); EST Glomerular Filtration Rate 84 (>60); Glucose 112 mg/dL (70-99); Potassium 4.2 mmol/L (3.3-5.1); Protein, Total 7.1 g/dL (5.9-8.4); Sodium Level 143 mmol/L (133-145); Total Bilirubin 0.41 mg/dL (0.00-1.30)
[2025-02-19 14:44] LABS: Thyroid Stim Hormone (TSH) 0.797 uIU/mL (0.300-4.200); Vitamin D,25 Hydroxy 36.8 ng/mL (30-100)
[2025-02-19 14:56] LABS: Cholesterol 153 mg/dL (<=200); High Density Lipoprotein 62 mg/dL; Low Density Lipoprotein Calc. 82 mg/dL; Triglycerides 47 mg/dL; Very Low Density Lipoprotein 9 mg/dL (5-40); cholesterol:hdl ratio screen 2.48
== END | disposition home or self-care (01) ==
LOC: LAB 11:29
PROVIDERS: PCP Family Medicine Geriatric Medicine; Referring Provider Family Medicine Geriatric Medicine; Visit Provider Family Medicine Geriatric Medicine
DX: E11.65 Type 2 diabetes mellitus with hyperglycemia (principal); E78.5 Hyperlipidemia, unspecified; E55.9 Vitamin D deficiency, unspecified; I10 Essential (primary) hypertension
CPT/HCPCS: 36415; 80053; 80061; 82043; 82306; 82570; 83036; 84443; 85025

== ENCOUNTER → 2025-03-12 | Outpatient (CLI) | payer MEDICARE, MEDICAID, SELFPAY ==
[2025-03-12 12:15] LABS: PTHIN 38 pg/mL (11-61)
[2025-03-12 12:33] LABS: Calcium 9.3 mg/dL (7.6-11.0)
[2025-03-12 12:37] LABS: Vitamin D,25 Hydroxy 44.1 ng/mL (30-100)
[2025-03-14 17:08] LABS: Anti-Thyroglobulin AB < 1.0 IU/mL (0.0-0.9); Thyroglobulin, Serum Qt. 0.4 ng/mL (1.5-38.5)
== END | disposition home or self-care (01) ==
LOC: LAB 11:10
PROVIDERS: PCP Family Medicine Geriatric Medicine; Referring Provider Internal Medicine Endocrinology, Diabetes & Metabolism; Visit Provider Internal Medicine Endocrinology, Diabetes & Metabolism
DX: C73 Malignant neoplasm of thyroid gland (principal); E89.0 Postprocedural hypothyroidism; E89.2 Postprocedural hypoparathyroidism; E55.9 Vitamin D deficiency, unspecified
CPT/HCPCS: 36415; 82306; 82310; 83970; 84432; 86800

== ENCOUNTER 2025-05-14 10:44 | Day surgery (SDC) | payer MEDICARE, MEDICAID, SELFPAY ==
[2025-05-14] VITALS (8 sets, daily range): BP systolic 92–157; BP diastolic 58–90; PULSE 50–68; RESP 16–18; TEMP 36.6–37.4; O2SAT 97–100; BMI 28.3
[2025-05-14] MEDS: Lactated Ringers 1,000 ML 15 ML IV (11:16)
--- NOTE | 2025-05-14 11:43 | PRE.ANES_ITS ---
ASA Classification* ASA Classification ASA Classification: 2 Assessment & Plan Anesthesia* Anesthesia Assessment Anesthesia Assessment: Discussed sedation and/or anesthesia options, risks, benefits, and alternatives with patient/parents/legal guardian/POA. Questions invited. The patient/parents/legal guardian/POA seems to understand and agrees to proceed with anesthesia plan. Reviewed the physical assessment, medical history, allergy history and patient home medications list prior to surgery/procedure/anesthetic and documented any changes. Performed airway and anesthesia risk assessments. Anesthesia Type Anesthesia Type: MAC History Source History Obtained from:: Patient and Chart Anesthesia Focused Assessment* Temperature: 99.3 F Pulse Rate: 57 Blood Pressure: 157/90 Respiratory Rate: 16 Pulse Ox: 100 Airway Assessment Mouth opens: 2 cm Mallampati Score: IV Teeth Condition: Partial and Upper Neck Range of motion (ROM): Full ROM Labs Anesthesia Preop lab: CBC WBC 5.7 K/mm3 (4.4-11.0) 02/19/25 11:40 02/19/25 RBC 4.09 M/mm3 (4.2-5.4) L 02/19/25 11:40 02/19/25 Hgb 12.4 g/dL (12.0-15.0) 02/19/25 11:40 02/19/25 Hct 37.1 % (37-47) 02/19/25 11:40 02/19/25 Plt Count 195 K/mm3 (150-450) 02/19/25 11:40 02/19/25 CHEMISTRY Potassium 4.2 mmol/L (3.3-5.1) 02/19/25 11:40 02/19/25 Sodium 143 mmol/L (133-145) 02/19/25 11:40 02/19/25 BUN 17 mg/dL (4-19) 02/19/25 11:40 02/19/25 Creatinine 0.78 mg/dL (0.70-1.20) 02/19/25 11:40 02/19/25 Glucose 112 mg/dL (70-99) H 02/19/25 11:40 02/19/25 POC Glucose 101 mg/dL (74-106) 05/14/25 11:01 05/14/25 TSH 0.797 uIU/mL (0.300-4.200) 02/19/25 11:40 01/23 07/18 COAG PT 14.0 SECONDS (11.7-14.9) 08/10/24 12:13 Pre-Assessment Diagnosis/Proposed Procedure Planned Operative Procedure(s): COLONOSCOPY Anesthesia History Anesthesia History - hospital admissions officer: Anesthesia History - hospital admissions officer Hx Hospitalization Yes: POSTOP THYROIDECTOMY 05/10/25 13:01 Any Problems With Anesthesia No 05/10/25 13:01 Cholinesterase deficiency No 05/10/25 13:01 You/Your Family Experience No 05/10/25 13:01 fever (hyperthermia) with Relationship Recent Exposure to Contagious No 05/14/25 11:02 Disease Does patient have nerve No 05/10/25 13:01 stimulator Patient instructed to have device shut off --Does patient have Pacemaker No 05/14/25 11:02 or ICD? When Was Last Pacemaker Check QUESTION #4 FULL TEXT: You/Your Family Experience fever (hyperthermia) with Anesthesia Last Oral Intake Last Oral intake: Last Oral Intake NPO since 06:00 05/14/25 11:02 Meds taken in AM with sips of Yes 05/14/25 11:02 water? Meds patient instructed to levothyroxine 05/14/25 11:02 take am of surgery PONV PONV - hospital admissions officer: PONV - hospital admissions officer Female Yes 05/10/25 13:01 HX of Motion Sickness No 05/10/25 13:01 HX of N/V After Surgery No 05/10/25 13:01 Non-Smoker Yes 05/10/25 13:01 Duration of Surgery greater No 05/10/25 13:01 than 60 minutes Number of Risk Factors 2 05/10/25 13:01 PONV Score Moderate Risk 05/10/25 13:01 Height & Weight Height & Weight: Anesthesia: Height & Weight Height 5 ft 3 in 05/14/25 11:02 Weight: 72.7 kg 05/14/25 11:02 Body Mass Index (BMI) 28.3 05/14/25 11:02 Respiratory Assessment Respiratory Assessment - hospital admissions officer: Respiratory Tract Infection Hx - hospital admissions officer Hx Respiratory Tract Infection No 05/10/25 13:01 STOP Sleep Apnea STOP Sleep Apnea - hospital admissions officer: STOP Sleep Apnea - hospital admissions officer Hx Hypertension Yes: CONTROLLED WITH MED 05/10/25 13:01 Hx Sleep Apnea No 05/10/25 13:01 CPAP No 05/10/25 13:01 BIPAP No 05/10/25 13:01 Do you snore loudly (louder No 05/10/25 13:01 than talking or can be heard Do you often feel tired/ No 05/10/25 13:01 fatigued/ sleepy during daytime? Has anyone observed you stop No 05/10/25 13:01 breathing during sleep? STOP Results Negative 05/10/25 13:01 QUESTION #5 FULL TEXT : Do you snore loudly (louder than talking or can be heard through closed doors)? Tobacco Use History Tobacco Use History - hospital admissions officer: Tobacco Use History - hospital admissions officer Tobacco Use Smoking Status Former smoker 05/10/25 13:01 Hx Tobacco Use No 05/10/25 13:01 Years Smoking Packs Smoked per Day Smoking Cessation Date was No - quit smoking greater 05/10/25 13:01 within the last 15 years than 15 years ago Hx Smoking Cessation Date 10/24/07 05/10/25 13:01 Hx Smoking Cessation Counseling Hematologic Medial History Hematologic Hx - hospital admissions officer: Hematologic Medical Hx - district supervisor Hx of Blood Transfusion No 05/10/25 13:01 Hx of Transfusion in last 3 No 05/10/25 13:01 Months Date of Last Transfusion (if within last 3 months) Ever experience any problems No 05/10/25 13:01 with transfusion(s)? Specify any problems Hx of Preganancy in last 3 No 05/10/25 13:01 Months Nurse Filling Out Transfusion JUDY 05/10/25 13:01 & Questions: Date: 05/10/25 05/10/25 13:01 Time: 13:03 05/10/25 13:01 Patient unable to answer at this time (ie. confused, unrespo /Reproduction History /Reproductive History - hospital admissions officer: /Reproductive Hx- hospital admissions officer Hx Now No 05/10/25 13:01 Gestational Age (in weeks): EDC: Hx Hx Para Hx Section SAB No 05/10/25 13:01 Active Medications Active Medications: Current Medications Generic Name Dose Route Start Last Admin Trade Name Freq PRN Reason Stop Dose Admin Lactated Ringer's 1,000 mls @ 15 mls/hr 07/22/25 11:00 05/14/25 11:16 IV 15 mls/hr .Q48H AYO Administration PFSH Medical History Alcohol use Marijuana use Difficulty swallowing Shortness of breath on exertion Hoarseness Postoperative primary hypothyroidism Thyroid cancer Screening for colon cancer Thyroid nodule Wears glasses Wears partial dentures Depression Anxiety History of steroid therapy Heartburn Gastric reflux Former smoker Chronic cough History of stress test Vision problems Acid reflux High cholesterol High blood pressure Anxiety and depression Drug abuse Diabetes Breast lump Alcohol abuse Home Medications ?Medication ?Instructions ?Recorded ?Last Taken ?Type atorvastatin 10 mg tablet 10 mg PO QHS 07/20/24 Unknow n History omeprazole 20 mg capsule,delayed 20 mg PO QHS 07/20/24 Unknown History release albuterol sulfate 90 mcg/actuation 2 puff inhalation Q 4 PRN shortness 03/04/25 Unknown History aerosol inhaler of breath or wheezing calcium carbonate 500 mg PO DAILY 03/04/25 Unk nown History levothyroxine 112 mcg tablet 112 mcg PO QDAY 03/04/25 05/14/25 History lisinopril 20 1 tab PO QDAY 03/04/25 Unkno wn History mg-hydrochlorothiazide 12.5 mg tablet Allergy/AdvReac Type Severity Reaction Status Date / Time codeine Allergy Itching Verified 05/14/25 11:01 Family History Mother Bleeding disorder Arthritis Diabetes Kidney disease Hypertension COPD (chronic obstructive pulmonary disease) Brother Colon cancer Surgical History (Updated 05/10/25 @ 13:01 by Debra Woodard) History of thyroidectomy S/P parathyroidectomy History of colonoscopy History of lumpectomy H/O: hysterectomy Social History Smoking Status: Former smoker how long ago did patient quit smokin yrs ago alcohol intake: former substance use type: does not use additional social history: no marijuana, no vaping, no edibles, no asa, no ibuprofen, pt mother hx of blood clots Review of Systems (Anesthesia) ROS Narrative System reviewed and no additional complaints, except as documented.
--- NOTE | 2025-05-14 12:14 | HP.PCM_ITS ---
HPI - General General Date of Admission: 05/14/25 Date of Service: 05/14/25 Chief Complaint: Screening colonoscopy HPI Narrative EBONI ROQUE, is a 69 F who presents today for screening colonoscopy. She had a colonoscopy approximately 10 years ago. That was normal. She is not having any problems with her bowels, chest pain or shortness of breath. She does have past medical history of diabetes, high blood pressure, hypercholesterolemia, thyroid cancer. PFSH Medical History Alcohol use Marijuana use Difficulty swallowing Shortness of breath on exertion Hoarseness Postoperative primary hypothyroidism Thyroid cancer Screening for colon cancer Thyroid nodule Wears glasses Wears partial dentures Depression Anxiety History of steroid therapy Heartburn Gastric reflux Former smoker Chronic cough History of stress test Vision problems Acid reflux High cholesterol High blood pressure Anxiety and depression Drug abuse Diabetes Breast lump Alcohol abuse Home Medications ?Medication ?Instructions ?Recorded ?Last Taken ?Type atorvastatin 10 mg tablet 10 mg PO QHS 07/20/24 Unknow n History omeprazole 20 mg capsule,delayed 20 mg PO QHS 07/20/24 Unknown History release albuterol sulfate 90 mcg/actuation 2 puff inhalation Q 4 PRN shortness 03/04/25 Unknown History aerosol inhaler of breath or wheezing calcium carbonate 500 mg PO DAILY 03/04/25 Unk nown History levothyroxine 112 mcg tablet 112 mcg PO QDAY 03/04/25 05/14/25 History lisinopril 20 1 tab PO QDAY 03/04/25 Unkno wn History mg-hydrochlorothiazide 12.5 mg tablet Allergy/AdvReac Type Severity Reaction Status Date / Time codeine Allergy Itching Verified 05/14/25 11:01 Family History Mother Bleeding disorder Arthritis Diabetes Kidney disease Hypertension COPD (chronic obstructive pulmonary disease) Brother Colon cancer Surgical History History of thyroidectomy S/P parathyroidectomy History of colonoscopy History of lumpectomy H/O: hysterectomy Social History Smoking Status: Former smoker how long ago did patient quit smokin yrs ago alcohol intake: former substance use type: does not use additional social history: no marijuana, no vaping, no edibles, no asa, no ibuprofen, pt mother hx of blood clots Vital Signs Vital Signs Vital Signs: 05/14/25 11:02 05/14/25 11:02 05/14/25 11:46 Temperature 99.3 F H 99.3 F H Temperature Source Temporal Pulse Rate 57 L 57 L Respiratory Rate 16 16 Respiratory Pattern Normal Blood Pressure 157/90 H 157/90 H Blood Pressure Mean 112 Blood Pressure Source Monitor Blood Pressure Position Semi-Fowlers Blood Pressure Location Right Arm Pulse Ox 100 100 Oxygen Delivery Method Room Air Weight Weight: 160 lb 4.417 oz Body Mass Index (BMI) 28.3 Physical Exam Const alert, oriented x3, no apparent distress and healthy appearing General Appearance: cooperative GI normal to inspection, nondistended, normoactive bowel sounds, soft to palpation, non-tender and non-distended Percussion: normal to percussion Rectal Exam: deferred Results Lab / Micro Data Labs: Laboratory Results - last 24 hr 05/14/25 11:01: POC Glucose 101 Assessment & Plan Assessment/Plan (1) Encounter for screening colonoscopy: PLAN: She was explained alternatives, benefits, risk including not withstanding bleeding, infection, sepsis, perforation, need for charge and . She will have an ASA of 3.
--- NOTE | 2025-05-14 12:58 | PCM.POST.ANE ---
Anesthesia: Postop Eval I Current Vital Signs Temperature: 97.8 F Pulse Rate: 57 Blood Pressure: 104/58 Respiratory Rate: 16 Pulse Ox: 98 Oxygen Delivery Method: Room Air Assessment Airway patent: Yes Spontaneous unlabored respirations: Yes Mental status: Asleep nausea: No Vomiting: No Anesthesia Complication: No Fluid Hydration Crystalloid volume administer (ml): 500 Total IV fluid infused: 500 Progress Note Anesthesia document: Postop Eval 1 completed: Yes
--- NOTE | 2025-05-14 13:00 | PCM.POSTANE2 ---
Anesthesia Postop Eval I Sum Postop Eval Completion status Anesthesia document: Postop Eval 1 completed: Yes Anesthesia Postop Eval I Summary Anesthesia Postop Eval I Summary: Anesthesia Postop Eval I: Assessment Summary Airway patent Yes 05/14/25 12:59 [email or web address] Spontaneous unlabored Yes 05/14/25 12:59 [email or web address] respirations Mental status Asleep 05/14/25 12:59 [email or web address] nausea No 05/14/25 12:59 [email or web address] Vomiting No 05/14/25 12:59 [email or web address] Anesthesia Postop Eval I: Fluid Summary Crystalloid volume administer 500 05/14/25 12:59 [email or web address] (ml) Colloids volume administered ( ml) Blood Product volume administered (ml) Total IV fluid infused 500 05/14/25 12:59 [email or web address] Anesthesia Postop Eval I: Summary Notes Anesthesia Complication No 05/14/25 12:59 [email or web address] Anesthesia Complication Comment: Post-operative progress note Anesthesia: Postop Eval II Evaluation Mental status: Awake Pain Level: 0 nausea: No Vomiting: No Complications Anesthesia Complication: No
--- NOTE | 2025-05-14 13:01 | OP.COLON_ITS ---
Patient Name: She Washburn Procedure Date: 05/14/2025 12:22 PM Date of : 1955 Age: 69 Procedure: Colonoscopy Indications: Screening for colorectal malignant neoplasm Providers: Hair Loera DO Referring MD: Daniel Barahona MD Medicines: Propofol per Anesthesia, Monitored Anesthesia Care Patient Profile: This is a 69 year old female. Refer to note in patient chart for documentation of history and physical. Last Colonoscopy: more than 10 years ago. Complications: No immediate complications. Procedure: Pre-Anesthesia Assessment: - Prior to the procedure, a History and Physical was performed, and patient medications and allergies were reviewed. The patient is competent. The risks and benefits of the procedure and the sedation options and risks were discussed with the patient. All questions were answered and informed consent was obtained. Patient identification and proposed procedure were verified by the physician in the pre-procedure area. Mental Status Examination: alert and oriented. Airway Examination: normal oropharyngeal airway and neck mobility. Respiratory Examination: clear to auscultation. CV Examination: normal. Prophylactic Antibiotics: The patient does not require prophylactic antibiotics. Prior Anticoagulants: The patient has taken no anticoagulant or antiplatelet agents. ASA Grade Assessment: II - A patient with mild systemic disease. After reviewing the risks and benefits, the patient was deemed in satisfactory condition to undergo the procedure. The anesthesia plan was to use monitored anesthesia care (MAC). Immediately prior to administration of medications, the patient was re-assessed for adequacy to receive sedatives. The heart rate, respiratory rate, oxygen saturations, blood pressure, adequacy of pulmonary ventilation, and response to care were monitored throughout the procedure. The physical status of the patient was re-assessed after the procedure. After I obtained informed consent, the scope was passed under direct vision. Throughout the procedure, the patient's blood pressure, pulse, and oxygen saturations were monitored continuously. The Colonoscope was introduced through the anus and advanced to the cecum, identified by appendiceal orifice and ileocecal valve. The colonoscopy was performed without difficulty. The patient tolerated the procedure well. The quality of the bowel preparation was adequate. The ileocecal valve, appendiceal orifice, and rectum were photographed. Scope In: 12:33:36 PM Scope Withdrawal Time 0 hours 9 minutes 23 seconds Scope Out: 12:50:04 PM Total Procedure Duration Time 0 hours 16 minutes 28 seconds Findings: The perianal and digital rectal examinations were normal. A few small-mouthed diverticula were found in the recto-sigmoid colon and sigmoid colon. The exam was otherwise without abnormality on direct and retroflexion views. Impression: - Diverticulosis in the recto-sigmoid colon and in the sigmoid colon. - The examination was otherwise normal on direct and retroflexion views. - No specimens collected. Recommendation: - Discharge patient to home. - Resume previous diet. - Continue present medications. - Repeat colonoscopy in 10 years for screening purposes. Procedure Code(s): --- Professional --- G0121, Colorectal cancer screening; colonoscopy on individual not meeting criteria for high risk CPT copyright 2021 [employer]. All rights reserved. The codes documented in this report are preliminary and upon line cook review may be revised to meet current compliance requirements. Hair Loera DO 05/14/2025 1:00:45 PM This report has been signed electronically. Number of Addenda: 0 Note Initiated On: 05/14/2025 12:22 PM
--- NOTE | 2025-05-14 13:01 | OP.CCLET_ITS ---
05/14/2025 Daniel Barahona MD [address] [place] [address] Re : Colonoscopy procedure for She Washburn Dear Dr. Barahona This procedure was performed on Wednesday, May 14, 2025. My impressions and recommendations are as follows: Impressions : - Diverticulosis in the recto-sigmoid colon and in the sigmoid colon. - The examination was otherwise normal on direct and retroflexion views. - No specimens collected. Recommendations : - Discharge patient to home. - Resume previous diet. - Continue present medications. - Repeat colonoscopy in 10 years for screening purposes. My findings are described in the full procedure note, which is enclosed. If I can be of further assistance, please feel free to contact me at . Sincerely, Hair Loera, 05/14/2025 1:00:45 PM This report has been signed electronically.
== END 2025-05-14 13:27 | disposition home or self-care (01) ==
LOC: EN 10:45 → AC 10:46
PROVIDERS: PCP Family Medicine Geriatric Medicine; Referring Provider Family Medicine Geriatric Medicine; Visit Provider Internal Medicine Gastroenterology
PROC: 0DJD8ZZ Inspection of Lower Intestinal Tract, Via Natural or Artificial Opening Endoscopic (ICD-10-PCS; CPT 45378; principal; 2025-05-14 11:55)
DX: Z12.11 Encounter for screening for malignant neoplasm of colon (principal); E11.9 Type 2 diabetes mellitus without complications; K57.30 Diverticulosis of large intestine without perforation or abscess without bleeding; K21.9 Gastro-esophageal reflux disease without esophagitis; E78.00 Pure hypercholesterolemia, unspecified; Z87.891 Personal history of nicotine dependence; I10 Essential (primary) hypertension; E89.0 Postprocedural hypothyroidism; Z79.890 Hormone replacement therapy
CPT/HCPCS: G0121; 82962; J2405

== ENCOUNTER → 2025-05-23 | Outpatient (CLI) | payer MEDICARE, MEDICAID, SELFPAY ==
[2025-05-23 10:07] LABS: Hematocrit 41.5 % (37-47); Hemoglobin 14.0 g/dL (12.0-15.0); Immature Granulocytes Count 0.020 X10^3/uL (0.0-0.0); Mean Corp Hgb Conc 33.7 g/dL (32-36); Mean Corpuscular Volume 90.0 fL (81-99); Mean Platelet Vol. 11.5 fl (6.2-12.0); NRBC Flagged by Analyzer 0 % (0-5); Platelet Count 175 K/mm3 (150-450); RBC Distribution Width CV 12.9 % (11.6-14.6); RBC Distribution Width SD 42.7 fl (35.1-43.9); Red Blood Count 4.61 M/mm3 (4.2-5.4); White Blood Count 5.5 K/mm3 (4.4-11.0)
[2025-05-23 12:35] LABS: Cholesterol 172 mg/dL (<=200); Low Density Lipoprotein Calc. 79 mg/dL; Triglycerides 85 mg/dL; Very Low Density Lipoprotein 17 mg/dL (5-40); Vitamin D,25 Hydroxy 38.9 ng/mL (30-100); cholesterol:hdl ratio screen 2.26
[2025-05-23 12:50] LABS: AST(SGOT) 33 U/L (<=31); Alanine Aminotransfer ALT/SGPT 20 U/L (<=34); Albumin, Serum 4.5 g/dL (3.4-4.8); Alkaline Phosphatase 100 U/L (35-104); Anion Gap 15 (5-15); BUN 16 mg/dL (4-19); BUN/Creat Ratio 19.3 RATIO (10-20); Calcium,Total 9.4 mg/dL (7.6-11.0); Carbon Dioxide 25.8 mmol/L (21.0-32.0); Chloride 102 mmol/L (98-108); Globulin 3.1 g/dL (2.2-4.2); Glucose 114 mg/dL (70-99); Potassium 3.5 mmol/L (3.3-5.1)
[2025-05-24 16:09] LABS: Thyroglobulin, Serum Qt. 0.3 ng/mL (1.5-38.5)
== END | disposition home or self-care (01) ==
LOC: POLAB3 09:20
PROVIDERS: Internal Medicine Endocrinology, Diabetes & Metabolism; PCP Family Medicine Geriatric Medicine; Visit Provider Family Medicine Geriatric Medicine
DX: E11.65 Type 2 diabetes mellitus with hyperglycemia (principal); I10 Essential (primary) hypertension; E55.9 Vitamin D deficiency, unspecified; E78.5 Hyperlipidemia, unspecified
CPT/HCPCS: 36415; 80053; 80061; 82306; 83036; 84432; 84443; 85025; 86800

== ENCOUNTER → 2025-08-16 | Outpatient (CLI) | payer MEDICARE, MEDICAID, SELFPAY ==
[2025-08-20 09:08] LABS: Thyroglobulin, Serum Qt. 0.5 ng/mL (1.5-38.5)
== END | disposition home or self-care (01) ==
LOC: LAB 10:38
PROVIDERS: PCP Family Medicine Geriatric Medicine; Referring Provider Internal Medicine Endocrinology, Diabetes & Metabolism; Visit Provider Internal Medicine Endocrinology, Diabetes & Metabolism
DX: C73 Malignant neoplasm of thyroid gland (principal); E89.0 Postprocedural hypothyroidism
CPT/HCPCS: 36415; 84432; 84443; 86800

== ENCOUNTER → 2025-08-23 | Outpatient (CLI) | payer MEDICARE, MEDICAID, SELFPAY ==
[2025-08-23 09:28] LABS: Hematocrit 41.5 % (37-47); Hemoglobin 14.0 g/dL (12.0-15.0); Immature Granulocytes Count 0.020 X10^3/uL (0.0-0.0); Mean Corp Hgb Conc 33.7 g/dL (32-36); Mean Corpuscular Volume 90.8 fL (81-99); Mean Platelet Vol. 11.4 fl (6.2-12.0); NRBC Flagged by Analyzer 0 % (0-5); Platelet Count 208 K/mm3 (150-450); RBC Distribution Width CV 12.8 % (11.6-14.6); RBC Distribution Width SD 42.4 fl (35.1-43.9); Red Blood Count 4.57 M/mm3 (4.2-5.4); White Blood Count 5.7 K/mm3 (4.4-11.0)
[2025-08-23 10:02] LABS: AST(SGOT) 24 U/L (<=31); Alanine Aminotransfer ALT/SGPT 20 U/L (<=34); Albumin, Serum 4.4 g/dL (3.4-4.8); Alkaline Phosphatase 89 U/L (35-104); Anion Gap 8 (5-15); BUN 19 mg/dL (4-19); BUN/Creat Ratio 22.5 RATIO (10-20); Calcium,Total 9.5 mg/dL (7.6-11.0); Carbon Dioxide 31.6 mmol/L (21.0-32.0); Chloride 102 mmol/L (98-108); Cholesterol 167 mg/dL (<=200); Globulin 3.2 g/dL (2.2-4.2); Glucose 118 mg/dL (70-99); Low Density Lipoprotein Calc. 82 mg/dL; Potassium 4.0 mmol/L (3.3-5.1); Triglycerides 77 mg/dL; Very Low Density Lipoprotein 15 mg/dL (5-40); cholesterol:hdl ratio screen 2.36
[2025-08-23 16:51] LABS: Xtra Tube Kwok EXTRA TUBE
== END | disposition home or self-care (01) ==
LOC: POLAB3 09:11
PROVIDERS: PCP Family Medicine Geriatric Medicine; Visit Provider Family Medicine Geriatric Medicine
DX: E78.5 Hyperlipidemia, unspecified (principal); E11.22 Type 2 diabetes mellitus with diabetic chronic kidney disease; I12.9 Hypertensive chronic kidney disease with stage 1 through stage 4 chronic kidney disease, or unspecified chronic kidney disease; N18.9 Chronic kidney disease, unspecified
CPT/HCPCS: 36415; 80053; 80061; 83036; 84443; 85025